=== PATIENT | male | born 1975 | race Caucasian/White ===

== ENCOUNTER 2021-09-19 08:55 | Emergency (ER) | payer OTHER, SELFPAY ==
--- NOTE | 2021-09-19 08:57 | HMH.EDGENADL ---
ED Disposition Clinical Impression: Hemorrhoids Qualifiers: Hemorrhoid type: other Qualified Code(s): K64.8 - Other hemorrhoids Disposition: Home, Self-Care Condition on Discharge: Good Additional Instructions: Follow-up with either Dr. Whitfield or Dr. Pelitez for further evaluation. Return to the emergency department for fever, chest pain, rectal bleeding. Referrals: Provider,Referral, [Primary Care Provider] - Time of Disposition: 09:51 - Critical Care Critical Care Time: No Attestation: On , the high probability of a clinically significant, sudden or life threatening deterioration of the following system(s) required my full and direct attention, intervention and personal management. The time I documented below is in addition to time spent performing reported procedures but includes the following listed in this critical care notation. Medical Decision Making - Medical Records Medical records reviewed: Yes: I reviewed the patient's medical records. - Zain Inquiry Pt receiving controlled substance: No Vital Signs: 09/19/21 09:03 Temperature 98.5 F Temperature Source Oral Pulse Rate [Left Radial] 74 Respiratory Rate 18 Blood Pressure [Right Arm] 170/84 H Blood Pressure Mean [Right Arm] 112 Blood Pressure Source [Right Arm] Automatic Cuff Blood Pressure Position [Right Arm] Sitting 02 Sat by Pulse Oximetry 100 Oxygen Delivery Method Room Air Orders (Tests/Meds): ORDERS Category Date Time Status BMP [Basic Metabolic Panel] Stat Lab 09/19/21 08:58 Stop Req Complete Blood Count Auto Diff Stat Lab 09/19/21 08:58 Stop Req Occult Blood,Stool Stat Lab 09/19/21 09:02 Stop Req Medical Decision Narrative: 45yo M evaluated for bright red blood per rectum. Patient no acute distress on initial evaluation. Visual exam reveals no acute bleeding. Patient does have hemorrhoidal tissue. Recommended he follow-up with surgeon for further evaluation. General Adult HPI - General Stated complaint: rectal bleeding Time Seen by Provider: 09/19/21 08:57 Mode of Arrival: Ambulatory Source of Information: Patient Limitations: No Limitations - History of Present Illness HPI narrative: 45yo M presents the emergency department secondary to bright red blood per rectum. Patient reports he has a history of hemorrhoids and normally has some bleeding with bowel movement. He reports he has had significant bleeding today. States it has not stopped. Denies any blood thinner use. Denies any trauma to the area. Denies any previous rectal surgery. - Related Data Allergies Allergy/AdvReac Type Severity Reaction Status Date / Time PCN (PENICILLIN) Allergy Unknown I-RASH Uncoded 11/05/17 14:33 [facility] History - Hepatitis A Screen Drug use history?: No Attestation statement:: This patient has been screened for Hepatitis A risk factors. I have reviewed the patient's past medical history: Yes - Social History Smoking Status: Current some day smoker ROS Obtained: Yes All systems reviewed & no additional complaints - Gastrointestinal Gastrointestingal: Reports: as per HPI Physical Exam - General General appearance: alert, in no apparent distress - Head Head exam: atraumatic - Respiratory Respiratory exam: Present: normal lung sounds bilaterally. Absent: respiratory distress - Cardiovascular Cardiovascular exam: Present: regular rate, normal rhythm. Absent: JVD - Abdominal Exam Abdominal exam: Present: soft, normal bowel sounds. Absent: distention, tenderness, guarding - Rectal Exam Rectal exam: Present: normal inspection, normal rectal tone, hemorrhoids - Neurological Exam Neurological exam: Present: alert, oriented X3, CN II-XII intact, normal gait - Skin Skin exam: Present: warm, dry, intact, normal color
[2021-09-19 09:03] VITALS: BP 170/84; PULSE 74; RESP 18; TEMP 36.9; O2SAT 100; BMI 34.0
[2021-09-19 09:57] VITALS: BP 152/74; PULSE 78; RESP 16; TEMP 36.6; O2SAT 98
== END 2021-09-19 09:59 | disposition home or self-care (01) ==
PROVIDERS: Emergency Provider Family Medicine
DX: K64.8 Other hemorrhoids (principal); Z88.0 Allergy status to penicillin
CPT/HCPCS: 99281

== ENCOUNTER → 2021-10-01 09:48 | Outpatient (CLI) | payer OTHER, SELFPAY ==
[2021-10-01 10:03] LABS: Basophils # 0.1 K/mm3 (0-0.2); Basophils % 0.5 % (0.1-2.0); Eosinophils # 0.1 K/mm3 (0.0-0.4); Eosinophils % 1.1 % (0.1-12.0); Hematocrit 45.2 % (42.0-52.0); Hemoglobin 15.2 g/dL (14.1-18.0); Lymphocytes # 2.8 K/mm3 (0.7-4.5); Lymphocytes % 29.4 % (10-50); Mean Corpuscular HGB Conc 33.5 g/dL (31.8-35.4); Mean Corpuscular Hemoglobin 30.6 pg (27.0-31.2); Mean Corpuscular Volume 91.3 fl (80-94); Mean Platelet Volume 9.6 fl (7.4-10.4); Monocytes # 0.7 K/mm3 (0.1-1.0); Monocytes % 7.1 % (1.7-9.3); Neutrophils # 5.8 K/mm3 (1.8-7.8); Neutrophils % 61.7 % (37.0-80.0); Platelet Count 230 K/mm3 (142-424); Red Blood Count 4.95 M/mm3 (4.60-6.20); Red Cell Distribution Width 13.6 % (11.5-17.5); White Blood Count 9.4 K/mm3 (4.8-10.8)
[2021-10-01 13:17] LABS: Chloride 107 mmol/L (98-107); Potassium 4.7 mmoL/L (3.5-5.1); Sodium 143 mmol/L (136-145)
[2021-10-01 13:20] LABS: Anion Gap 13.7 mEq/L (5-15); Blood Urea Nitrogen 11 mg/dl (9-20); Calcium 9.2 mg/dl (8.4-10.2); Carbon Dioxide 27 mmol/L (22.0-30.0); Estimated Glomerular Filt Rate 92 ml/min (>60); GFR (African American) 111 ML/MIN (>60); Glucose 84 mg/dl (74-100)
== END ==
PROVIDERS: Visit Provider Surgery
DX: K62.5 Hemorrhage of anus and rectum (principal); Z01.812 Encounter for preprocedural laboratory examination; Z11.52 Encounter for screening for COVID-19
CPT/HCPCS: 36415; 80048; 85025; C9803; U0003; U0005

== ENCOUNTER 2021-10-03 08:45 | Day surgery (SDC) | payer OTHER, SELFPAY ==
[2021-10-03] VITALS (12 sets, daily range): BP systolic 86–144; BP diastolic 46–104; PULSE 62–76; RESP 12–18; TEMP 36.2–36.8; O2SAT 93–98; BMI 32.5
--- NOTE | 2021-10-03 10:26 | P.PN_ITS ---
[facility] Anesthesia Checklist - Patient Identification Patient Identification: Arm Band, Verbal (Name & ) - Structural Data Admitted From: Home Planned Operative Procedure/s: Hemorrhoidectomy Consent for Planned Operative Procedure(s) Verified: Yes Verified Documents: Surgical Consent - Chart Verification Results Verified: CBC, BMP - Additional verifications Anesthesia Reactions: No Hx Blood Transfusions: No Blood Transfusion Reaction: No - Cardiovascular Assessment Heart Sounds: S1 & S2 Pulse Rhythm: Regular - Airway Assessment C-Spine Mobility Assessed: Yes Dentition: Poor Dentition - Neurological Assessment Level of Consciousness: Awake, Alert, Appropriate - Anesthesia Plan Anesthesia Risk discussed: Yes ASA Class: III Anesthesia Type: General [facility] History I have reviewed the patient's past medical history: Yes Medical History: Reports:: Cancer (skin cancer removed) Denies:: Diabetes Mellitus Type 1, Diabetes Mellitus Type 2, Internal Pacemaker, MRSA, Seizures *Have you ever received a pneumonia vaccine?: No *Have you received a flu vaccine this season?: No Other Medical History: Denies: Blood Transfusion Reaction Anesthesia experience/problems:: none Other Surgeries: Yes: Colonoscopy. No: Pacemaker Amputation: No Fractures: No - *Social History Last grade of school completed: 9th or 10th Smoking Status: Current some day smoker Tobacco Type: cigarettes # Packs/Day (cigarettes): 2 (60 pack years) Alcohol Intake: never Substance Use Type: denies use *Occupational Status:: employed Housing: house Household Members: family *Travel in the last 8 weeks: None Family Hx:: No significant family history
--- NOTE | 2021-10-03 11:26 | P.PN_ITS ---
[facility] Anesthesia Record Part I Intake, IV Amount: 450 Estimated blood loss (mL): 0 Urine output (mL): 0 Blood Pressure: 95/46 SaO2: 93 Pulse Rate: 70 Respiratory Rate: 12 Temperature: 97.3 F Patient is:: Drowsy, Oral/Nasal airway Stable to PACU at:: 11:25
--- NOTE | 2021-10-03 11:29 | P.OP_ITS ---
Date of procedure: 10/03/21 Pre-op Diagnosis:: Bleeding hemorrhoids Post-op Diagnosis:: Same Procedure performed:: Exam under anesthesia Surgeon:: Regan Pleitez MD CONSUMER AFFAIRS MANAGER:: Other Anesthesia: LMA Estimated blood loss (mL): 2 Clinical Note:: Patient is a 45-year-old male who was seen in the emergency department a couple of days ago with rectal bleeding. Diagnosed with hemorrhoids. Asked to follow- up with surgery. Patient states that he has had problems with hemorrhoids and rectal bleeding for about 15 years. When he initially had these problems he had seen Dr. Bernadette Pride and underwent colonoscopy in [place]. He had been treated for hemorrhoids and discussion was held for possible hemorrhoid surgery. He states that he has had ongoing bleeding for the past 15 years. However, several days ago it was quite severe and he had to place a hand towel in his underwear and states it became saturated with blood. That was when he was seen in the emergency department. Of note, the patient had been seen 3 months ago in [place] and underwent colonoscopy at which time he had 5 polyps removed and was given treatment for hemorrhoids. Patient was seen in the office. Limited examination revealed some hemorrhoid inflammation. Given the degree of his symptoms plan was made for hemorrhoidectomy with possible banding. Operative findings:: Patient has severe circumferential prolapsing internal hemorrhoids with some external hemorrhoids Operative note:: Patient was taken the operating room. He was positioned in supine position. General anesthesia was induced. He was repositioned in traditional lithotomy position. Area was prepped and draped in the standard surgical fashion. Di gital examination was performed which revealed internal hemorrhoids. [place] anoscope was inserted. Patient had severe inflamed circumferential prolapsing internal hemorrhoids. Thorough exam under anesthesia was performed and consideration was being given for possible extensive hemorrhoidectomy. However, given the circumferential nature of the prolapsing hemorrhoids it was then felt that possible hemorrhoid stapling may be considered. Due to the need for alternate procedure the anesthesia was reversed and procedure terminated. I will counseled the patient on possible PPH hemorrhoid stapling with concomitant possible complex hemorrhoidectomy. Condition: stable Disposition: PACU Complications:: None immediately apparent
--- NOTE | 2021-10-03 11:58 | PC.NURSE ---
1154-pt transported to post op at this time w/zackery rails up, vss, pt stable upon discharge from pacu
--- NOTE | 2021-10-03 12:07 | SUR.PHASEII ---
S.O. CALLED FOR NURSES, PT HAD HEAD LAID BACK WITH EYES CLOSED NOT INITIALLY RESPONSIVE. HR 70 SAT 94%. AROUSED AFTER SAID HIS NAME SEVERAL TIMES. S.O SAID PT DOES THIS AFTER SEX. BP 144/87. Chasity CLINE CRNA NOTIFIED AND OBTAINED ORDER FOR EKG.
--- NOTE | 2021-10-03 12:19 | ECG_ITS ---
APPROVED REPORT Exam: Resting ECG HR:58 bpm ECG Measurements Heart Rate 58 AXES AK 156 P 11 QRSd 88 QRS 11 QT 390 T 1 QTc 382 Conclusion Sinus bradycardia Otherwise normal ECG Electronically signed by : Zeferino Dee MD 10/03/2021 22:08:18
--- NOTE | 2021-10-03 12:20 | SUR.PHASEII ---
FSBS 88
[2021-10-03 12:25] LABS: POC Glucose,Bedside 88 (70-110)
--- NOTE | 2021-10-04 19:47 | HMH.ANESII ---
[facility] Anesthesia Record Part II Discharge Time: 11:55 Destination: Emergency Department PACU nurse assessment reviewed?: Yes Patient Condition:: Undetermined Anesthesia Complications:: None Patient taken to ED for syncopal episode while in recovery. Swallowing reflex intact?: Yes Cyanosis?: No Blood Pressure: 137/93 Pulse Rate: 71 Temperature: 97.5 F Mental Status: Lethargic Pain level:: 0 Nausea and/or vomitting:: None Intake, IV Amount: 0
[2021-10-04 19:49] VITALS: BP 137/93; PULSE 71; TEMP 36.4
== END 2021-10-03 12:36 | disposition other institution (70) ==
LOC: OR 08:47
PROVIDERS: Visit Provider Surgery
PROC: (CPT 46999; principal; 2021-10-03 10:45)
DX: K64.8 Other hemorrhoids (principal); Z88.0 Allergy status to penicillin
CPT/HCPCS: 46999; 82962; 93005; 96374; J2405

== ENCOUNTER 2021-10-03 12:44 | Emergency (ER) | payer OTHER, SELFPAY ==
[2021-10-03 12:45] VITALS: BP 116/86; PULSE 60; RESP 16; O2SAT 97; BMI 32.5
[2021-10-03 12:46] VITALS: BMI 32.5
--- NOTE | 2021-10-03 12:47 | XR_ITS ---
PROCEDURE: XR CHEST PORTABLE CLINICAL HISTORY: syncopal episode COMPARISON: No exams were available for comparison FINDINGS: The cardiomediastinal silhouette and pulmonary vascularity are within normal limits. The lungs are clear without infiltrates, suspicious nodules, or pleural effusions. No acute bony abnormalities. IMPRESSION: No acute findings. The lay in his he Dictated by: Jerry Proctor MD 10/03/2021 13:36 Jerry Proctor MD in [place] 10/03/2021 13:36
--- NOTE | 2021-10-03 12:48 | CT_ITS ---
PROCEDURE: CT HEAD/BRAIN WO CON CLINICAL INDICATION: frequent syncopal episode COMPARISON: No exams were available for comparison TECHNIQUE: Axial images obtained. All CT scans at the facility use one or more dose reduction, viz: automated exposure control, ma/kV adjustment per patient size (including targeted exams where dose is matched to indication, i.e. head), or iterative reconstruction technique. FINDINGS: No midline shift, mass effect, intracranial hemorrhage, hydrocephalus, or extra-axial fluid collection is evident. The calvarium has an unremarkable appearance. No mastoid effusion. No sinus air-fluid level. IMPRESSION: No acute intracranial finding Dictated by: Jerry Proctor MD 10/03/2021 13:38 Jerry Proctor MD in [facility] 10/03/2021 13:38
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
[2021-10-03 13:16] LABS: Basophils # 0.1 K/mm3 (0-0.2); Basophils % 0.7 % (0.1-2.0); Eosinophils # 0.2 K/mm3 (0.0-0.4); Eosinophils % 2.1 % (0.1-12.0); Hematocrit 37.5 % (42.0-52.0); Hemoglobin 12.5 g/dL (14.1-18.0); Lymphocytes # 2.3 K/mm3 (0.7-4.5); Lymphocytes % 32.8 % (10-50); Mean Corpuscular HGB Conc 33.3 g/dL (31.8-35.4); Mean Corpuscular Hemoglobin 31.1 pg (27.0-31.2); Mean Corpuscular Volume 93.6 fl (80-94); Mean Platelet Volume 10.2 fl (7.4-10.4); Monocytes # 0.5 K/mm3 (0.1-1.0); Neutrophils % 57.3 % (37.0-80.0); Platelet Count 178 K/mm3 (142-424); Red Cell Distribution Width 13.5 % (11.5-17.5)
[2021-10-03 13:20] LABS: Anion Gap 12.5 mEq/L (5-15); Blood Urea Nitrogen 10 mg/dl (9-20); Calcium 7.8 mg/dl (8.4-10.2); Carbon Dioxide 22 mmol/L (22.0-30.0); Chloride 110 mmol/L (98-107); Creatinine Clearance Estimated 219 mL/min (50-200); Estimated Glomerular Filt Rate 123 ml/min (>60); GFR (African American) 148 ML/MIN (>60); Glucose 83 mg/dl (74-100); Potassium 4.5 mmoL/L (3.5-5.1); Sodium 140 mmol/L (136-145)
[2021-10-03 13:30] VITALS: BP 133/97; PULSE 65; RESP 16; O2SAT 98
[2021-10-03 13:33] LABS: Troponin I < 0.01 ng/ml (0.00-0.034)
[2021-10-03 14:00] VITALS: BP 148/102; PULSE 69; RESP 18; O2SAT 97
[2021-10-03 14:07] VITALS: BP 139/99; PULSE 68; RESP 15; TEMP 36.7; O2SAT 99
== END 2021-10-03 14:08 | disposition home or self-care (01) ==
PROVIDERS: Emergency Provider Emergency Medicine
DX: R55 Syncope and collapse (principal); K64.9 Unspecified hemorrhoids; F17.210 Nicotine dependence, cigarettes, uncomplicated
CPT/HCPCS: 70450; 71045; 80048; 84484; 85025; 99283

== ENCOUNTER → 2021-10-17 14:58 | Outpatient (CLI) | payer OTHER, SELFPAY | PROVIDERS: Visit Provider Urology | DX: R55 Syncope and collapse (principal) | CPT/HCPCS: 93225 ==

== ENCOUNTER → 2021-10-18 10:17 | Outpatient (CLI) | payer OTHER, SELFPAY ==
--- NOTE | 2021-10-18 10:17 | CA_ITS ---
APPROVED REPORT EXAM: Comprehensive 2D, Doppler, and color-flow Echocardiogram Remelt Pan Tank Operator: Gladis Guardado CRT Ht: 6 ft 2 in Wt: 260lbs BSA: 2.43 BP: 149/98 mmHg Indications: Syncope, PVC S, SMOKIMG 2D Dimensions LVOT 2.09 cm (M/F) 1.5-2.5 LA Volume 40.10 mL LA Volume Index 16.50 mL/m2 (M/F) 16-34 M-Mode Dimensions RVDd 2.93 cm (0.9-2.6) LA Diam 3.37 cm (1.9-4.0) LVDd 6.20 cm (3.5-5.7) Ao Diam 4.65 cm (2.0-3.7) LVDs 3.42 cm (3.5-5.7) IVSd 1.41 cm (0.6-1.1) PWd 0.49 cm (0.6-1.1) EF (Teich) 75.20% FS 44.80% EDV (Teich) 194.00 mL TAPSE 2.50 (<1.7) ESV (Teich) 48.10 mL LV Diastology E Decel Time 290.00 (160-240 msec) E/A Ratio 1.06 MED E' 6.40 (< 7 cm/sec) MED A' 13.90 cm/s E'/MED E' Ratio 11.56 (>14) LAT E' 13.00 (<10 cm/sec) LAT A' 9.80 cm/s E/LAT E' Ratio 5.69 (>14) Aortic Valve AO Peak GR. 9.30 mmHg Mitral Valve MV A Velocity 70.00 (40-130 cm/s) E/A Ratio 1.06 MV Decel. Time 290.00 (160-240 ms) Pulmonary Valve PV Peak Velocity 142.00 (50-150 cm/s) Tricuspid Valve TR P. Velocity 200.00 cm/s RAP Estimate 10.00 mmHg RVSP 26.00 mmHg Left Ventricle Left atrium is normal size, left ventricle is normal size, there is no concentric left ventricular hypertrophy, visually estimated ejection fraction 55% with no regional wall motion abnormality, diastolic parameters are within normal range. Right Ventricle Right atrium and right ventricle are normal size and contractility. Aortic Valve Aortic valve is grossly normal, there is no aortic stenosis or aortic insufficiency. Mitral Valve Mitral valve grossly normal, there is trace mitral regurgitation. Tricuspid Valve Tricuspid valve grossly normal, there is trace tricuspid regurgitation, tricuspid regurgitation jet velocity is inadequate for calculation of the right ventricular systolic pressure. Pulmonic Valve Pulmonic valve is poorly visualized. Great Vessels Aortic root is normal size. Inferior vena cava is normal size and collapse. Pericardium No significant pericardial effusion noted. Conclusion 1. Normal left ventricular size, preserved left ventricular systolic function, visually estimated ejection fraction 55% with no regional wall motion abnormality, diastolic parameters are within normal range. 2. Trace mitral and tricuspid regurgitation. 3. No significant pericardial effusion noted. 4. Inferior vena cava is normal size with normal inspiratory collapse. Electronically signed by : Ortega Kiran MD 10/18/2021 21:09:02
== END ==
PROVIDERS: Visit Provider Urology
DX: R55 Syncope and collapse (principal); I49.3 Ventricular premature depolarization; K64.8 Other hemorrhoids; Z72.0 Tobacco use
CPT/HCPCS: 93306

== ENCOUNTER → 2021-10-30 08:55 | Outpatient (CLI) | payer BC, SELFPAY ==
--- NOTE | 2021-10-30 | CA_ITS ---
APPROVED REPORT Exam: Exercise Treadmill Technologist: Gloria Lu, Ht: 6 ft 2 in Wt: 260 lbs BSA: 2.43 m2 HR: 79 bpm BP: 142/97 mmHg Medical History Allergies: penicillin Cardiac Risk Factors: Smoking, FHX of CAD Stress Test Details Test: Pedro, Exercise stress testing was performed using a Pedro protocol. HR Resting HR: 72 bpm Max Heart Rate (APMHR): 176 bpm Max HR Achieved: 153 bpm Target HR (85% APMHR): 149 bpm % of APMHR: 86 Recovery HR: 96 bpm BP Resting BP: 142/97 mmHg Max BP: 200/101 mmHg Recovery BP: 151.0/92.0 mmHg ECG Clinical Exercise duration: 09:50 min Highest Stage Achieved: Exercise capacity: 12.8 METs Stress ECG Conclusion TEST STOPPED DUE TO CHEST PAIN AND FATIGUE. PT BECAME SOA WITH EXERTION. RIGHT SIDED CP WITH PEAK ECERCISEWITH NO EKG CHANGES TO SUGGEST ISCHEMIA. NORMAL EKG WITH EXERCISE. Test Summary REST . . . . . . . Standing REST . . . . . . . Sitting REST 21:54 0.0 0.0 72 . 142/ 97 . . Stage 1 01:00 10.0 1.7 95 . . . . Stage 1 02:00 10.0 1.7 104 . 160/ 95 . . Stage 1 03:00 10.0 1.7 103 . 160/ 95 . . Stage 2 01:00 12.0 2.5 114 . . . . Stage 2 02:00 12.0 2.5 119 . 165/ 90 . . Stage 2 03:00 12.0 2.5 123 . 165/ 90 . . Stage 3 01:00 14.0 3.4 133 . . . . Stage 3 02:00 14.0 3.4 139 . 185/100 . . Stage 3 03:00 14.0 3.4 143 . 185/100 . . Stage 4 00:50 16.0 4.2 152 . . . Stop exercise at 09:50 RECOVERY 01:00 0.0 0.0 138 . . . . RECOVERY 02:00 0.0 0.0 116 . . . . RECOVERY 03:00 0.0 0.0 101 . 200/101 . . RECOVERY 04:00 0.0 0.0 100 . 179/ 93 . . RECOVERY 05:00 0.0 0.0 100 . 158/ 90 . . RECOVERY 06:00 0.0 0.0 95 . 158/ 90 . . RECOVERY 07:00 0.0 0.0 97 . 158/ 90 . . RECOVERY 07:25 0.0 0.0 99 . 158/ 90 . . Electronically signed by : Ortega Kiran MD 10/30/2021 21:04:19
== END ==
LOC: RT 08:56
PROVIDERS: Visit Provider Nurse Practitioner Family
DX: R06.09 Other forms of dyspnea (principal); R07.9 Chest pain, unspecified; Z82.49 Family history of ischemic heart disease and other diseases of the circulatory system; Z72.0 Tobacco use
CPT/HCPCS: 93017

== ENCOUNTER → 2021-11-01 10:04 | Outpatient (CLI) | payer BC, SELFPAY ==
[2021-11-01 10:41] LABS: Basophils % 0.4 % (0.1-2.0); Eosinophils # 0.1 K/mm3 (0.0-0.4); Eosinophils % 1.1 % (0.1-12.0); Hematocrit 42.4 % (42.0-52.0); Hemoglobin 14.6 g/dL (14.1-18.0); Lymphocytes # 2.8 K/mm3 (0.7-4.5); Lymphocytes % 30.8 % (10-50); Mean Corpuscular HGB Conc 34.4 g/dL (31.8-35.4); Mean Corpuscular Hemoglobin 30.6 pg (27.0-31.2); Mean Corpuscular Volume 88.8 fl (80-94); Mean Platelet Volume 9.9 fl (7.4-10.4); Monocytes # 0.5 K/mm3 (0.1-1.0); Monocytes % 6.1 % (1.7-9.3); Neutrophils # 5.5 K/mm3 (1.8-7.8); Neutrophils % 61.5 % (37.0-80.0); Platelet Count 186 K/mm3 (142-424); Red Blood Count 4.78 M/mm3 (4.60-6.20); Red Cell Distribution Width 13.4 % (11.5-17.5); White Blood Count 8.9 K/mm3 (4.8-10.8)
[2021-11-01 11:19] LABS: Chloride 107 mmol/L (98-107); Potassium 4.3 mmoL/L (3.5-5.1); Sodium 142 mmol/L (136-145)
[2021-11-01 11:22] LABS: Anion Gap 11.3 mEq/L (5-15); Blood Urea Nitrogen 15 mg/dl (9-20); Calcium 9.2 mg/dl (8.4-10.2); Carbon Dioxide 28 mmol/L (22.0-30.0); Estimated Glomerular Filt Rate 81 ml/min (>60); GFR (African American) 98 ML/MIN (>60); Glucose 106 mg/dl (74-100)
== END ==
PROVIDERS: Visit Provider Physician Assistant
DX: Z01.812 Encounter for preprocedural laboratory examination (principal); Z11.52 Encounter for screening for COVID-19; R94.39 Abnormal result of other cardiovascular function study
CPT/HCPCS: 36415; 80048; 85025; C9803; U0003; U0005

== ENCOUNTER 2021-11-02 08:23 | Day surgery (SDC) | payer BC, SELFPAY ==
[2021-11-02] VITALS (10 sets, daily range): BP systolic 108–145; BP diastolic 67–88; PULSE 55–69; RESP 18–20; TEMP 36.7; O2SAT 90–97; BMI 33.3
--- NOTE | 2021-11-02 | IR_ITS ---
APPROVED REPORT Patient Location: Outpatient PROCEDURES Left heart catheterization Left ventriculogram Selective coronary angiogram INDICATION Abnormal stress test, Angina pectoris Informed consent was obtained prior to the procedure. COMPLICATIONS NONE Estimated Blood Loss: LESS THAN 10 ML TECHNIQUE One percent lidocaine used to anesthetize the right anterior aspect of the wrist. The right radial artery was accessed via the Seldinger technique. A 6 [place] sheath was placed in the right radial artery. 2.5 mg of verapamil, 800 mcg of nitroglycerin, 1mg Lidocaine and 5000 U Heparin were given through the arterial sheath. The [place] 1 catheter was also used to perform left heart catheterization, left ventriculogram and selective coronary angiogram. At the end of the procedure the sheath was removed good hemostasis was achieved using Traclet band, patient was transferred to the postop holding area in stable condition. ANGIOGRAPHIC RESULTS The left main artery Normal The left anterior descending artery Normal The circumflex artery Normal The right coronary artery Dominant normal The HOLLAND ventriculogram reveals Normal 65% The left ventricular end-diastolic pressure 15 to 20 mmHg IMPRESSION Normal coronary arteries Normal ejection fraction Mildly elevated LVEDP PLAN 1. Evaluation of noncardiac symptoms Electronically signed by : Thuan Hobson MD 11/02/2021 11:34:05
== END 2021-11-02 14:31 | disposition home or self-care (01) ==
LOC: CATHLAB 08:24
PROVIDERS: Visit Provider Internal Medicine
DX: R94.39 Abnormal result of other cardiovascular function study (principal); I20.8 Other forms of angina pectoris; F17.210 Nicotine dependence, cigarettes, uncomplicated; R06.02 Shortness of breath; R55 Syncope and collapse; Z82.49 Family history of ischemic heart disease and other diseases of the circulatory system; R94.31 Abnormal electrocardiogram [ECG] [EKG]
CPT/HCPCS: 93458; 99152; C1725; C1760; C1769; J1644; Q9967

== ENCOUNTER → 2021-11-13 08:52 | Outpatient (CLI) | payer BC, SELFPAY ==
--- NOTE | 2021-11-13 08:52 | MR_ITS ---
PROCEDURE: MR ANGIO HEAD WO CON CLINICAL INDICATION: Frequent syncope, splitting headache COMPARISON: No exams were available for comparison TECHNIQUE: 3D [id number] images obtained without contrast with multi slab reformats FINDINGS: This exam does not include the peripheral branches of the cerebral arteries above the level of the mid aspect of the 3rd ventricle. Consider repeating exam at no additional charge for full cerebral coverage. The included portion of the brain shows no evidence of aneurysm, AVM, or major vascular occlusive change. The [id number] is unremarkable IMPRESSION: Negative limited MRA of the brain. This exam does not include the peripheral branches of the cerebral arteries above the level of the mid aspect of the 3rd ventricle. The exam can be repeated to assure full coverage of the brain at no additional charge if clinically desired Dictated by: Jerry Proctor MD 11/14/2021 08:45 Jerry Proctor MD in [facility] 11/14/2021 08:45
--- NOTE | 2021-11-13 08:52 | MR_ITS ---
PROCEDURE: MR HEAD/BRAIN WO CON CLINICAL INDICATION: Expected headache, syncope COMPARISON: CT CT HEAD/BRAIN WO CON from 10/03/2021 TECHNIQUE: Routine multiplanar multi echo sequences obtained without contrast FINDINGS: No midline shift, mass effect, intracranial hemorrhage, or hydrocephalus. The cerebellopontine angles, cerebellum, and mid brain have an unremarkable appearance. The pituitary, optic chiasm, corpus callosum, and craniocervical junction are unremarkable. No abnormal white matter signal intensity. Small amount fluid signal is present in the left mastoid sinus. No paranasal sinus air-fluid level. There is mild mucosal thickening of the ethmoid sinuses IMPRESSION: No acute intracranial findings. Mild sinus disease Dictated by: Jerry Proctor MD 11/14/2021 08:39 Jerry Proctor MD in [facility] 11/14/2021 08:39
== END ==
PROVIDERS: PCP Internal Medicine; Visit Provider Specialist
DX: R51.9 Headache, unspecified (principal); R55 Syncope and collapse
CPT/HCPCS: 70544; 70551

== ENCOUNTER → 2021-11-14 09:56 | Outpatient (CLI) | payer BC, SELFPAY ==
--- NOTE | 2021-11-14 09:58 | MR_ITS ---
PROCEDURE: NO CHARGE MR COMPARISON: No exams were available for comparison TECHNIQUE: Routine multiplanar multi echo sequences are performed without gadolinium enhancement. FINDINGS: The patient return for additional imaging for better coverage of the cerebral convexities. However, and fortunately there is a moderate amount of motion artifact. Prominent vessels are present in the interhemispheric fissure region anteriorly which may only be related to motion however, 1 cannot exclude the possibility of a a.m. at this area therefore, patient should return for additional imaging of this region without motion. IMPRESSION: Inconclusive findings regarding the interhemispheric region of the frontal area most likely secondary to motion, cannot exclude AVM. Suggest repeat without motion. Dictated by: Jerry Proctor MD 11/17/2021 14:22 Jerry Proctor MD in [facility] 11/17/2021 14:22
== END ==
PROVIDERS: PCP Family Medicine; Visit Provider Specialist
DX: R51.9 Headache, unspecified (principal); R55 Syncope and collapse

== ENCOUNTER → 2021-12-15 10:42 | Outpatient (CLI) | payer BC, SELFPAY ==
--- NOTE | 2021-12-15 10:43 | CT_ITS ---
FINAL REPORT TECHNIQUE: Thin section axial images were performed through the head in a CTA protocol. MIP reconstruction sagittal and coronal images were submitted. This study was performed with techniques to keep radiation doses as low as reasonably achievable (ALARA). Individualized dose reduction techniques using automated exposure control or adjustment of mA and/or kV according to the patient's size were employed. CLINICAL HISTORY: severe headache, syncope pt had MRa Head and study was limited due to movement artifact. COMPARISON: MRA dated November 13, 2021 FINDINGS: CTA head: The distal vertebral, basilar and distal internal carotid arteries have an unremarkable appearance. No aneurysm is seen. Major intracranial vessels are patent without significant stenosis. IMPRESSION: No evidence of significant stenosis or occlusion. Reviewed, Interpreted and Dictated by Francisco Novak MD Transcribed by Mo Miguel Authenticated by Francisco Novak MD on 12/15/2021 01:20:00 PM [facility][1]
== END ==
LOC: RAD 10:43
PROVIDERS: PCP Family Medicine; Visit Provider Specialist
DX: R55 Syncope and collapse (principal)
CPT/HCPCS: 70496; Q9967

== ENCOUNTER 2022-03-20 01:45 | Emergency (ER) | payer BC, SELFPAY ==
[2022-03-20 01:34] VITALS: BP 120/95; PULSE 57; RESP 12; TEMP 36.5; O2SAT 99; BMI 34.0
--- NOTE | 2022-03-20 02:37 | HMH.EDGENADL ---
ED Disposition Clinical Impression: Situational depression Alcohol intoxication Qualifiers: Complication of substance-induced condition: uncomplicated Qualified Code(s): F10.920 - Alcohol use, unspecified with intoxication, uncomplicated Disposition: Home, Self-Care Condition on Discharge: Good Instructions: DI for Anxiety -- Adult, DI for Alcohol Use Disorder Additional Instructions: You have been evaluated for alcohol intoxication and situational depression. Please try to avoid alcohol, especially when you are feeling stressed or depressed. You have agreed to contract of safety. You will call your nephew or call 911 before doing anything to harm yourself or anyone else. Please follow-up with your primary care doctor in 1 to 2 days for recheck. Return to the emergency department at once for any new or worsening symptoms or any other concerns. Time of Disposition: 05:35 - Critical Care Critical Care Time: No Attestation: On , the high probability of a clinically significant, sudden or life threatening deterioration of the following system(s) required my full and direct attention, intervention and personal management. The time I documented below is in addition to time spent performing reported procedures but includes the following listed in this critical care notation. Medical Decision Making - Medical Records Medical records reviewed: Yes: I reviewed the patient's medical records. - Zain Inquiry Pt receiving controlled substance: No Vital Signs: 03/20/22 01:34 Temperature 97.7 F Temperature Source Oral Pulse Rate [Right Radial] 57 L Respiratory Rate 12 Blood Pressure [Right Arm] 120/95 H Blood Pressure Mean [Right Arm] 103 02 Sat by Pulse Oximetry 99 Oxygen Delivery Method Room Air Medical Decision Narrative: In summary this is a 46-year-old male presenting to the emergency department with alcohol intoxication. Patient clinically stable on arrival. Vital signs within normal limits. He is conversational. Tearful. Plan to observe on air sampling and monitoring, looking for signs of respiratory depression or other distress. After a few hours, patient was awake and alert. Ambulating in the emergency department without signs of intoxication. His nephew was at bedside. Patient admits to alcohol use last night. Says it was stupid and that he regrets the heavy drinking. Is having relationship issues, but denies any thoughts of wanting hurt himself or anyone else. He appears to have good insight and judgment. He agreed to a contract of safety. Says he will call his nephew or call 911 before doing anything to harm himself. He will follow-up with his primary care doctor. Given strict return precautions. Stable for discharge. General Adult HPI - General Chief complaint: Alcohol Stated complaint: INTOXICATED Time Seen by Provider: 03/20/22 01:47 Mode of Arrival: EMS Limitations: Altered Mental Status Description of Symptoms (Recalled from ER Triage Doc. by RN): PT was found intoxicated in a carport. pt is able to answer questions when he is awake. pt states he was depressed after a break up and drank his feelings too fast. - History of Present Illness HPI narrative: 46-year-old female presenting to the emergency department for alcohol intoxication. EMS was called by patient's family. They said he was drunk and difficult to wake up. When EMS arrived, patient was conversational. Admitted to drinking liquor tonight. Says he has not drank alcohol in over 6 years. Believes that tonight he drank too much too fast. Believes he may have drank as much as 1/5 of liquor. Is going through a break-up with his girlfriend. They have a 4-year-old child together. Tonight he was feeling depressed and like he wanted to get drunk. Denies trying to hurt himself. Denies suicide attempts. Has been depressed, but does not want to take medication or talk to a psychologist. No prior history of depression or anxiety. No pr
--- NOTE | 2022-03-20 03:49 | PC.NURSE ---
pt o2 monitor reapplied to pt. family at bedside
--- NOTE | 2022-03-20 05:30 | PC.NURSE ---
Pt requesting to leave, states I am feeling more myself. I appreciate all you have done, but I feel better and would like to go home. I am not feeling like I was when I came in here . made aware of this statement.
[2022-03-20 05:46] VITALS: BP 115/85; PULSE 65; RESP 12; TEMP 36.5; O2SAT 98
== END 2022-03-20 05:50 | disposition home or self-care (01) ==
PROVIDERS: Emergency Provider Emergency Medicine; PCP Family Medicine
DX: F10.129 Alcohol abuse with intoxication, unspecified (principal); F43.21 Adjustment disorder with depressed mood; R94.31 Abnormal electrocardiogram [ECG] [EKG]; R94.39 Abnormal result of other cardiovascular function study; R07.9 Chest pain, unspecified; R47.1 Dysarthria and anarthria; I10 Essential (primary) hypertension; R41.82 Altered mental status, unspecified; F17.210 Nicotine dependence, cigarettes, uncomplicated; Z88.0 Allergy status to penicillin; Z85.9 Personal history of malignant neoplasm, unspecified; Z82.49 Family history of ischemic heart disease and other diseases of the circulatory system; Z80.9 Family history of malignant neoplasm, unspecified; Z83.3 Family history of diabetes mellitus
CPT/HCPCS: 99282

== ENCOUNTER → 2022-03-25 09:06 | Outpatient (CLI) | payer BC, SELFPAY ==
[2022-03-25 09:31] LABS: MANUAL DIFFERENTIAL MANUAL DIFFERENTIAL (MANUAL DIFF)
[2022-03-25 10:00] LABS: Basophils # 0.1 K/mm3 (0-0.2); Basophils % 1.5 % (0.1-2.0); Eosinophils # 0.1 K/mm3 (0.0-0.4); Eosinophils % 1.2 % (0.1-12.0); Hematocrit 46.6 % (42.0-52.0); Hemoglobin 15.7 g/dL (14.1-18.0); Lymphocytes # 2.4 K/mm3 (0.7-4.5); Lymphocytes % 25.8 % (10-50); Mean Corpuscular HGB Conc 33.6 g/dL (31.8-35.4); Mean Corpuscular Hemoglobin 31.6 pg (27.0-31.2); Mean Corpuscular Volume 93.9 fl (80-94); Monocytes # 0.6 K/mm3 (0.1-1.0); Monocytes % 6.4 % (1.7-9.3); Neutrophils # 5.9 K/mm3 (1.8-7.8); Platelet Count 183 K/mm3 (142-424); Red Blood Count 4.96 M/mm3 (4.60-6.20); Red Cell Distribution Width 13.9 % (11.5-17.5); White Blood Count 9.1 K/mm3 (4.8-10.8)
[2022-03-25 10:42] LABS: Chloride 108 mmol/L (98-107); Potassium 4.5 mmoL/L (3.5-5.1); Sodium 141 mmol/L (136-145)
[2022-03-25 10:45] LABS: Anion Gap 10.5 mEq/L (5-15); Blood Urea Nitrogen 14 mg/dl (9-20); Calcium 9.6 mg/dl (8.4-10.2); Carbon Dioxide 27 mmol/L (22.0-30.0); Estimated Glomerular Filt Rate 91 ml/min (>60); GFR (African American) 110 ML/MIN (>60); Glucose 87 mg/dl (74-100)
[2022-03-25 10:55] LABS: Eosinophils % 1 % (0-3); Lymphocytes % 38 % (10-50); Monocytes % 4 % (2-9); Neutrophils % 57 % (42-76); Total Cells Counted 100
[2022-03-25 10:57] LABS: Platelet Estimate Normal
== END ==
LOC: COVID.OUT 09:06
PROVIDERS: PCP Family Medicine; Visit Provider Surgery
DX: Z01.812 Encounter for preprocedural laboratory examination (principal); Z11.52 Encounter for screening for COVID-19; K64.9 Unspecified hemorrhoids
CPT/HCPCS: 36415; 80048; 85007; 85014; 85018; 85048; 85049; C9803; U0003; U0005

== ENCOUNTER 2022-03-26 08:25 | Day surgery (SDC) | payer BC, SELFPAY ==
[2022-03-22 12:27] VITALS: BMI 34.0
--- NOTE | 2022-03-22 13:24 | SUR.PREOP ---
During preop assessment patient stated that he did experience suicidal ideations as recent as 4-5 weeks ago, but denies any current plan. Patient evaluated in Emergency Department on 03/20/22 and discharged with instructions to see Dr Lopez in 1-2 days. Patient states that he has yet to follow up. Spoke with Chasity Waters to determine if clearance with Dr Lopez would be appropriate and sufficient for patient's scheduled procedure, she verbalized agreement with plan. Spoke with Dr Lopez who agreed to see patient tomorrow, 03/26/22 at 1 pm. Patient notified and in agreement to see Dr Lopez at this time. Spoke with Dr Pleitez who verbalized agreement with plan.
[2022-03-26] VITALS (13 sets, daily range): BP systolic 110–134; BP diastolic 67–83; PULSE 60–82; RESP 12–18; TEMP 36.2–36.9; O2SAT 91–98
--- NOTE | 2022-03-26 09:05 | P.PN_ITS ---
[facility] Anesthesia Checklist - Patient Identification Patient Identification: Arm Band, Verbal (Name & ) - Structural Data Admitted From: Home Planned Operative Procedure/s: Hemmorrhoidectomy Consent for Planned Operative Procedure(s) Verified: Yes Verified Documents: Surgical Consent - NPO Status Verified Time NPO: 00:00 - Chart Verification Results Verified: CBC, BMP - Additional verifications Anesthesia Reactions: No Hx Blood Transfusions: No Blood Transfusion Reaction: No - Airway Assessment C-Spine Mobility Assessed: Yes TMJ Mobility Assessed: Yes Dentition: Poor Dentition - Neurological Assessment Level of Consciousness: Awake, Alert, Appropriate - Anesthesia Plan Anesthesia Risk discussed: Yes ASA Class: III Anesthesia Type: General [facility] History I have reviewed the patient's past medical history: Yes Medical History: Reports:: Cancer, Hypertension Denies:: Diabetes Mellitus Type 1, Diabetes Mellitus Type 2, Internal Pacemaker, MRSA, Seizures *Have you ever received a pneumonia vaccine?: No *Have you received a flu vaccine this season?: Yes Other Medical History: Denies: Blood Transfusion Reaction Anesthesia experience/problems:: none Other Surgeries: Yes: Cardiac Catheterization, Colonoscopy, Sinus Surgery, Other. No: Pacemaker Amputation: No Fractures: No - *Social History Last grade of school completed: 9th or 10th Smoking Status: Current every day smoker Tobacco Type: cigarettes # Packs/Day (cigarettes): 1 Alcohol Intake: never Alcohol Intake Frequency:: holidays/special occasions only Substance Use Type: denies use *Occupational Status:: employed Housing: house Household Members: significant other *Travel in the last 8 weeks: Inside the [facility] Family Hx:: Cancer, Diabetes, Heart Attack
--- NOTE | 2022-03-26 11:40 | P.PN_ITS ---
[facility] Anesthesia Record Part I Intake, IV Amount: 1,600 Estimated blood loss (mL): 20 Urine output (mL): 0 Blood Pressure: 118/70 SaO2: 91 Pulse Rate: 82 Respiratory Rate: 16 Temperature: 97.2 F Patient is:: Drowsy, Stable Stable to PACU at:: 11:35
--- NOTE | 2022-03-26 15:22 | HMH.OPNOTE ---
Date of procedure: 03/26/22 Pre-op Diagnosis:: Prolapsing significant internal and external hemorrhoids Post-op Diagnosis:: Same Procedure performed:: Procedure for prolapsing hemorrhoids (PPH) Surgeon:: Regan Pleitez MD Anesthesia: FLORENTINO Estimated blood loss (mL): 20 Clinical Note:: Patient presents for PPH hemorrhoidopexy for ongoing hemorrhoid problems. I had seen him in September. He was sent for surgical consultation after he had presented to the emergency department with quite significant rectal bleeding and diagnosis of hemorrhoids. Patient does state that he has had problems with hemorrhoids and rectal bleeding for about 15 years. He had previously seen Dr. Bernadette Pride and underwent colonoscopy in [place]. Discussion was being held for possible hemorrhoid surgery. When I saw him in the office several months ago he was having some significant hemorrhoid bleeding. He was taken to the operating room for planned hemorrhoidectomy on 10/03/2021. He was found to have severe prolapsing circumferential hemorrhoids with some external hemorrhoids. Given the degree of his hemorrhoid symptoms and physical findings it was felt that he would best be served with hemorrhoidal pexy with possible concomitant hemorrhoidectomy. This was to be scheduled at a later date. Interestingly postoperatively after his minimal exam under anesthesia the patient had a syncopal episode. Patient was evaluated in the emergency department. He does state that he had followed up with neurology and cardiology and even went heart catheterization. He was recently seen in the office with ongoing hemorrhoid problems mainly characterized as some significant bleeding. Patient would like to pursue hemorrhoid surgery due to his symptomatology. We will tentatively plan for PPH hemorrhoidal pexy and possible hemorrhoidectomy. Operative findings:: He had significant circumferential prolapsing hemorrhoids with some external hemorrhoids. Most pronounced inflamed oozing hemorrhoids was in the patient's right lateral region. Operative note:: Consent was obtained and patient was taken to the operating room. He was positioned in supine position. General anesthesia was induced. He was repositioned and prone jackknife position. The area was prepped and draped in the standard surgical fashion. Moistened gauze was inserted into the anal canal and removed. There was circumferential prolapse. [place] anoscope was inserted and inspection was carried out. He had circumferential internal prolapsing hemorrhoids with some minor external hemorrhoids. Plan was made to proceed with PPH hemorrhoidopexy. PPH stapling device was opened. Circular anal dilator was inserted with the obturator. Obturator was then removed. Dilator was secured with placement of 2-0 Prolene perianal sutures temporarily. There was internal prolapsing hemorrhoid tissue circumferentially. Pursestring suture anoscope was inserted. 2-0 PDS pursestring suture was placed several centimeters above the dentate line. It was inspected for integrity and completeness. The 33 mm hemorrhoidal circular stapler device was inserted via the anus with the anvil advanced proximal to the pursestring suture. While applying traction on the pursestring suture the stapler was slowly closed. It was then fired. It was removed and there was noted to be segmental resection of rectal mucosa. Palpation revealed an exposed staple. [place] anoscope was inserted and ultimately this exposed staple was able to be removed. Rectal vault was thoroughly irrigated. Inspection was carried out using the anoscope. There was some inflamed hemorrhoids in the patient's right lateral location. However these no longer prolapse. Consideration was being given initially for possible banding and possible hemorrhoidectomy. However, given the fact that than the longer prolapsed plan was made to defer this with need to be for possible hemorrhoidectomy in th
--- NOTE | 2022-03-27 07:55 | P.PN_ITS ---
[facility] Anesthesia Record Part II Discharge Time: 12:25 Destination: Surgical Day Care (OP Surgery) PACU nurse assessment reviewed?: Yes Patient Condition:: Good Anesthesia Complications:: None Swallowing reflex intact?: Yes Cyanosis?: No Blood Pressure: 115/68 Pulse Rate: 64 Temperature: 97.2 F Mental Status: Alert & Oriented Pain level:: 0 Nausea and/or vomitting:: None Intake, IV Amount: 0
[2022-03-27 07:56] VITALS: BP 115/68; PULSE 64; TEMP 36.2
== END 2022-03-26 13:30 | disposition home or self-care (01) ==
LOC: OR 08:27
PROVIDERS: PCP Family Medicine; Visit Provider Surgery
PROC: (CPT 46947; principal; 2022-03-26 10:00)
DX: K64.2 Third degree hemorrhoids (principal); I10 Essential (primary) hypertension; Z85.9 Personal history of malignant neoplasm, unspecified; Z80.9 Family history of malignant neoplasm, unspecified; Z83.3 Family history of diabetes mellitus; Z82.3 Family history of stroke; Z79.899 Other long term (current) drug therapy; Z88.0 Allergy status to penicillin
CPT/HCPCS: 46947; 96374; J2405; J2710

== ENCOUNTER 2022-06-07 20:07 | Emergency (ER) | payer BC, SELFPAY ==
[2022-06-07 20:07] VITALS: BP 120/82; PULSE 77; RESP 16; TEMP 37.1; O2SAT 97; BMI 30.8
[2022-06-07 21:17] VITALS: BP 120/82; PULSE 77; RESP 16; TEMP 37.1; O2SAT 97
== END 2022-06-07 21:19 | disposition left against medical advice (07) ==
PROVIDERS: Emergency Provider Emergency Medicine; PCP Family Medicine
DX: Z53.21 Procedure and treatment not carried out due to patient leaving prior to being seen by health care provider (principal)

== ENCOUNTER 2023-01-11 09:16 | Day surgery (SDC) | payer OTHER, SELFPAY ==
[2022-11-08 13:55] VITALS: BMI 32.3
--- NOTE | 2022-11-09 08:15 | SUR.PREOP ---
spoke with patient @ 0815 he had a family emergency and wont be coming in for procedure today
--- NOTE | 2022-11-09 08:16 | SUR.PREOP ---
BJ notified LM on office VM
[2023-01-08 13:00] VITALS: BMI 33.6
[2023-01-11] VITALS (10 sets, daily range): BP systolic 104–122; BP diastolic 68–80; PULSE 56–74; RESP 16–20; TEMP 36.1–36.5; O2SAT 93–99
--- NOTE | 2023-01-11 09:56 | HMH.SCOPE ---
Procedure: Date: 01/11/23 Patient Date of :: 1975 Procedure Performed:: Esophagogastroduodenoscopy with biopsies Total colonoscopy with polypectomy using snare and hemorrhoid banding Indications:: Patient presents for EGD and colonoscopy. he underwent PPH hemorrhoid stapling for severe prolapsing circumferential hemorrhoids on 03/26/2022.? He has a longstanding history of some significant hemorrhoid problems for at least 15 years.? He had previously seen Dr. Bernadette Pride years ago and had undergone colonoscopy in [place] and discussion was being held for possible hemorrhoid surgery.? After the patient had presented to the emergency department last year with severe bleeding I had planned on performing hemorrhoidectomy but given his exam under anesthesia and the degree of hemorrhoids it was felt that traditional hemorrhoidectomy would result in suboptimal outcome.? I therefore rescheduled him and performed PPH hemorrhoid stapling on 03/26/2022.? Patient patient had been seen regularly after the surgery and initially he was doing quite well with no evidence of any rectal bleeding.? He then developed some episodes of transient minimal bleeding.? However prior to appointment on 05/22/2022 he states that he had severe bleeding episode once again but then this resolved.? He has had some episodes of occasional quite significant bleeding.? He wonders if stress could cause this bleeding.? He has noted some very dark black stools consistent with old blood .? He has never had upper endoscopy. I had considered repeat exam under anesthesia with possible hemorrhoid banding versus hemorrhoidectomy.? However, when he gives this history of possible melena I feel that endoscopic evaluation would be warranted prior to proceeding with this.? Plan will be for upper endoscopy as well as full colonoscopy as it has been many years since he underwent colonoscopy in [place].? It is possible that he may have hemorrhoids amenable to colonoscopic banding.? However, pending the findings he could require follow-up operative intervention with hemorrhoidectomy. Performing Provider:: Regan Pleitez MD Referring Provider:: Zeferino Lopez MD Sedation:: MAC sedation Procedure:: Patient history was obtained and appropriate physical examination was performed. Patient's medications and allergies were reviewed. Informed consent was obtained after explaining the benefits, alternatives, and risks of the procedure including, but not limited to, bleeding, perforation, missed lesions, and adverse reaction to anesthesia medications. Patient was transported to endoscopy procedure room. Patient was connected to monitoring devices. Throughout the procedure the patient's blood pressure, pulse, and oxygen saturations were monitored continuously. Patient identification and planned procedure were verified by the staff. Attention was first turned to upper endoscopy. Olympus endoscope was inserted via the oropharynx. Esophagus was cannulated. Overall esophagus appeared relatively unremarkable. Gastroesophageal junction was encountered at approximately 45 cm. 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 Stomach was cannulated and insufflated. Retroflexion revealed no evidence of any appreciable hiatal hernia. Gastric antral mucosal biopsy was obtained. Pylorus was traversed. Duodenum appeared unremarkable. Endoscope was withdrawn into the distal esophagus and several biopsies were obtained of possible Murphy's esophagus. Endoscope was withdrawn. Patient was repositioned for colonoscopy. Digital anorectal exam was performed. Variable stiffness Olympus colonoscope was inserted and advanced under direct visualization to the cecum. Adequacy of the colonic preparation was noted. The colonoscope was then slowly withdrawn while carefully examining the color, texture, anatomy, and integrity of the mucosoa circumferentially. Within the rectum retroflexion was performed.
--- NOTE | 2023-01-11 09:58 | EXP.ANES.CKL ---
[facility] Disclaimer: The information contained in this section may have been updated after the patient was seen, as this information can be updated by other users. Medical History Abnormal cardiovascular stress test Abnormal electrocardiography Chest pain Encounter for pre-operative cardiovascular clearance Family history of heart disease Insomnia Lip lesion Mood disorder Sinus pause Typical angina Surgical History History of hemorrhoidectomy Hx of sinus surgery Family History Other Family history of cancer Family history of hypertension Family history of myocardial infarction Family history of stroke Social History Smoking Status: Current every day smoker tobacco type: cigarettes packs per day: 1 second hand exposure: No alcohol intake: never substance use type: denies use current occupational status: employed Travel in the last 8 weeks: Inside the [place] household members: significant other housing: house lives independently: Yes marital status: single number of children: 1 current occupation: light truck driver current occupational exposures/hazards: No caffeine: Yes special jonathon needs: No agree to transfusion: No do you feel safe at home: Yes victim of physical abuse: No victim of emotional abuse: No victim of sexual abuse: No would you like helpful sources: No [facility] Anesthesia Checklist Patient Identification Patient Identification: Arm Band Structural Data Admitted From: Home Planned Operative Procedure/s: EGD/Colonoscopy Consent for Planned Operative Procedure(s) Verified: Yes Verified Documents: Surgical Consent and History and Physical NPO Status Verified Time NPO: 00:00 Additional verifications Anesthesia Reactions: No Hx Blood Transfusions: No Blood Transfusion Reaction: No Airway Assessment C-Spine Mobility Assessed: Yes TMJ Mobility Assessed: Yes Dentition: Good Dentition Neurological Assessment Level of Consciousness: Awake and Alert Anesthesia Plan Anesthesia Risk discussed: Yes Anesthesia Plan: Verified ASA Class: II Anesthesia Type: MAC
--- NOTE | 2023-01-11 11:20 | XR_ITS ---
FINAL REPORT CLINICAL HISTORY: Abdominal pain post colonoscopy FINDINGS: A PA view of the chest was obtained. The mediastinum is unremarkable. The lungs are clear. There is no free air beneath the diaphragm. Upright and supine views of the abdomen reveal a nonspecific, nonobstructive bowel gas pattern. No abnormal calcifications are identified. IMPRESSION: No acute process. Reviewed, Interpreted and Dictated by Regan Walls III, MD Transcribed by Trisha Bearden Authenticated and [facility]
--- NOTE | 2023-01-11 11:36 | SUR.PHASEII ---
pt says no pain in abdomen, rectum is a little sore
--- NOTE | 2023-01-11 12:05 | SUR.PHASEII ---
1205 - Pt back from rad @ this time.
--- NOTE | 2023-01-11 13:35 | SUR.PHASEII ---
abdominal xrays show no abnormalities or free air.
== END 2023-01-11 13:39 | disposition home or self-care (01) ==
PROVIDERS: PCP Family Medicine; Visit Provider Surgery
PROC: 0DJ08ZZ Inspection of Upper Intestinal Tract, Via Natural or Artificial Opening Endoscopic (ICD-10-PCS; CPT 43235; principal; 2023-01-11 10:30)
DX: K62.5 Hemorrhage of anus and rectum (principal); K64.8 Other hemorrhoids; K22.70 Barrett's esophagus without dysplasia; D12.4 Benign neoplasm of descending colon; F17.210 Nicotine dependence, cigarettes, uncomplicated; Z79.899 Other long term (current) drug therapy
CPT/HCPCS: 45380; 45385; 45398; 74021; J2704

== ENCOUNTER → 2023-01-24 10:33 | Outpatient (CLI) | payer OTHER, SELFPAY ==
[2023-01-24 11:42] LABS: Cholesterol 157 mg/dl (140-200); HDL Cholesterol 26 mg/dl (40-60)
[2023-01-24 11:52] LABS: Triglycerides 475 mg/dl (30-150)
[2023-01-24 11:53] LABS: Direct LDL Cholesterol 75.98 mg/dL (100-129)
== END ==
LOC: LAB 10:33
PROVIDERS: PCP Family Medicine; Visit Provider Family Medicine
DX: E78.5 Hyperlipidemia, unspecified (principal)
CPT/HCPCS: 36415; 80061

== ENCOUNTER 2023-05-09 06:15 | Day surgery (SDC) | payer OTHER, SELFPAY ==
[2023-05-07 13:20] VITALS: BMI 32.1
[2023-05-09 06:43] VITALS: BP 159/83; PULSE 72; RESP 18; TEMP 36.3; O2SAT 95
--- NOTE | 2023-05-09 08:09 | HMH.SCOPE ---
Procedure: Date: 05/09/23 Patient Date of :: 1975 Procedure Performed:: Flexible sigmoidoscopy with hemorrhoid banding Indications:: Patient presents for flexible sigmoidoscopy.? He has a relatively longstanding history of bleeding hemorrhoids with symptoms of prolapse.? Patient had actually undergone colonoscopy and was undergoing consideration of PPH stapling many years ago by Dr. Bernadette Pride in [place].? I had ultimately performed PPH hemorrhoid stapling for severe prolapsing circumferential hemorrhoids on 03/26/2022.? Initially the patient did quite well with no evidence of any rectal bleeding.? He then developed some transient episodes of minimal bleeding.? He then developed occasional episodes of more significant bleeding of what he described as old blood .? I therefore performed EGD and colonoscopy on 01/07/2023.? Colonoscopy revealed a descending colon tubular adenoma.? He also had prolapsing internal hemorrhoids which were banded endoscopically.? He was seen back in the office for routine follow-up on 03/28/2023 and had some recurrent bleeding.? I gave him a prescription for Anusol suppositories.? He states initially he had some improvement in the bleeding.? However, last week he states that he did not eat much as he did not have money to eat but then recently has had some significant recurrent bleeding.? He actually has a picture which shows appreciable blood in the toilet. Given his symptomatology and previous findings plan was to proceed with repeat flexible sigmoidoscopy with possible planned hemorrhoid banding Performing Provider:: Regan Pleitez MD Referring Provider:: . Sedation:: MAC sedation Procedure:: Patient history was obtained and appropriate physical examination was performed. Patient's medications and allergies were reviewed. Informed consent was obtained after explaining the benefits, alternatives, and risks of the procedure including, but not limited to, bleeding, perforation, missed lesions, and adverse reaction to anesthesia medications. Patient was transported to endoscopy procedure room. Patient was connected to monitoring devices. Throughout the procedure the patient's blood pressure, pulse, and oxygen saturations were monitored continuously. Patient identification and planned procedure were verified by the staff. Patient was positioned in lateral decubitus position. Digital anorectal exam was performed. Patient required appreciable amount of propofol for initiation of procedure. Olympus endoscope was inserted via the anus. Is advanced to the distal sigmoid which was unremarkable. Retroflexion was performed. Scar from previous PPH hemorrhoid stapling was noted. There were prolapsing hemorrhoids. Prolonged inspection was carried out. There was no evidence of any active bleeding. However there were a couple of hemorrhoid piles which appeared to be more inflamed and prolapsing. Plan was made to proceed with banding. Endoscope was withdrawn. The [employer] shooter endoscopic banding device was attached to the endoscope. Endoscope was reinserted and retroflexion was performed. A couple of more prominent prolapsing hemorrhoid piles were banded. These 2 hemorrhoidal piles were adjacent to 1 another. 2 bands were placed on each. There were no immediate complications. Endoscope was withdrawn. Findings:: Significant prolapsing hemorrhoids Recommendations:: Follow-up clinically. May need repeat banding or more definitive hemorrhoid surgery if symptoms persist. Complications:: None immediate Estimated blood obtained (mL): 2 Colonoscopy Component Colonoscopy Component Was a colonoscopy performed during today's procedure?: No
[2023-05-09 08:10] VITALS: BP 133/94; PULSE 70; RESP 18; TEMP 36.2; O2SAT 93
--- NOTE | 2023-05-09 08:13 | EXP.ANES.CKL ---
[facility] Disclaimer: The information contained in this section may have been updated after the patient was seen, as this information can be updated by other users. Medical History Abnormal cardiovascular stress test Abnormal electrocardiography Chest pain Encounter for pre-operative cardiovascular clearance Family history of heart disease Insomnia Lip lesion Mood disorder Pre-operative cardiovascular examination Pre-operative laboratory examination Sinus pause Typical angina Surgical History History of colonoscopy History of esophagogastroduodenoscopy (EGD) History of hemorrhoidectomy Hx of sinus surgery Family History Other Family history of cancer Family history of hypertension Family history of myocardial infarction Family history of stroke Social History Smoking Status: Current every day smoker tobacco type: cigarettes packs per day: 1 second hand exposure: No alcohol intake: never substance use type: denies use current occupational status: employed Travel in the last 8 weeks: [place] the [place] household members: significant other housing: house lives independently: Yes marital status: single number of children: 1 current occupation: diesel truck technician current occupational exposures/hazards: No caffeine: Yes special jonathon needs: No agree to transfusion: No do you feel safe at home: Yes victim of physical abuse: No victim of emotional abuse: No victim of sexual abuse: No would you like helpful sources: No [facility] Anesthesia Checklist Patient Identification Patient Identification: Verbal (Name & ) Structural Data Admitted From: Home Planned Operative Procedure/s: flex sigmoidoscopy Consent for Planned Operative Procedure(s) Verified: Yes Additional verifications Anesthesia Reactions: No Hx Blood Transfusions: No Blood Transfusion Reaction: No Airway Assessment C-Spine Mobility Assessed: Yes TMJ Mobility Assessed: Yes Dentition: Good Dentition Neurological Assessment Level of Consciousness: Awake, Alert and Appropriate Anesthesia Plan Anesthesia Risk discussed: Yes Anesthesia Plan: Verified ASA Class: II Anesthesia Type: MAC
[2023-05-09 08:20] VITALS: BP 142/67; PULSE 65; RESP 18; O2SAT 98
[2023-05-09 08:30] VITALS: BP 144/72; PULSE 63; RESP 17; O2SAT 98
[2023-05-09 08:40] VITALS: BP 154/94; PULSE 63; RESP 16; TEMP 36.6; O2SAT 98
== END 2023-05-09 08:40 | disposition home or self-care (01) ==
PROVIDERS: PCP Family Medicine; Visit Provider Surgery
PROC: 0DJD8ZZ Inspection of Lower Intestinal Tract, Via Natural or Artificial Opening Endoscopic (ICD-10-PCS; CPT 45330; principal; 2023-05-09 07:30)
DX: K64.8 Other hemorrhoids (principal)
CPT/HCPCS: 45350; J2704

== ENCOUNTER → 2023-05-10 11:31 | Outpatient (CLI) | payer OTHER, SELFPAY ==
--- NOTE | 2023-05-10 11:51 | ECG_ITS ---
APPROVED REPORT Exam: Resting ECG HR:67 bpm ECG Measurements Heart Rate 67 AXES NH 156 P 39 QRSd 85 QRS 58 QT 351 T 23 QTc 367 Conclusion SINUS RHYTHM NORMAL ECG UNCONFIRMED REPORT Electronically signed by : Zeferino Dee MD 05/10/2023 21:26:44
[2023-05-10 13:03] LABS: Basophils % 0.2 % (0.1-2.0); Eosinophils # 0.2 K/mm3 (0.0-0.4); Eosinophils % 1.7 % (0.1-12.0); Hematocrit 39.1 % (42.0-52.0); Hemoglobin 12.6 g/dL (14.1-18.0); Lymphocytes # 2.5 K/mm3 (0.7-4.5); Lymphocytes % 27.6 % (10-50); Mean Corpuscular HGB Conc 32.3 g/dL (31.8-35.4); Mean Corpuscular Hemoglobin 27.2 pg (27.0-31.2); Mean Corpuscular Volume 84.2 fl (80-94); Mean Platelet Volume 10.2 fl (7.4-10.4); Monocytes # 0.7 K/mm3 (0.1-1.0); Monocytes % 7.3 % (1.7-9.3); Neutrophils # 5.7 K/mm3 (1.8-7.8); Neutrophils % 63.1 % (37.0-80.0); Platelet Count 180 K/mm3 (142-424); Red Blood Count 4.64 M/mm3 (4.60-6.20); Red Cell Distribution Width 14.7 % (11.5-17.5)
[2023-05-10 13:24] LABS: Anion Gap 14.7 mEq/L (5-15); Blood Urea Nitrogen 19 mg/dl (9-20); Calcium 8.9 mg/dl (8.4-10.2); Carbon Dioxide 27 mmol/L (22.0-30.0); Chloride 107 mmol/L (98-107); Estimated Glomerular Filt Rate 80 ml/min (>60); GFR (African American) 97 ML/MIN (>60); Glucose 81 mg/dl (74-100); Potassium 4.7 mmoL/L (3.5-5.1); Sodium 144 mmol/L (136-145)
== END ==
LOC: LAB 11:32
PROVIDERS: PCP Family Medicine; Visit Provider Student in an Organized Health Care Education/Training Program
DX: Z01.818 Encounter for other preprocedural examination (principal); C44.02 Squamous cell carcinoma of skin of lip
CPT/HCPCS: 36415; 80048; 85025; 93005

== ENCOUNTER 2023-05-14 09:01 | Day surgery (SDC) | payer OTHER, SELFPAY ==
[2023-05-13 10:38] VITALS: BMI 32.1
[2023-05-14] VITALS (9 sets, daily range): BP systolic 117–142; BP diastolic 68–90; PULSE 64–78; RESP 15–19; TEMP 36.1–36.2; O2SAT 92–100
--- NOTE | 2023-05-14 10:20 | EXP.ANES.CKL ---
[facility] Disclaimer: The information contained in this section may have been updated after the patient was seen, as this information can be updated by other users. Medical History Abnormal cardiovascular stress test Abnormal electrocardiography Chest pain Encounter for pre-operative cardiovascular clearance Family history of heart disease Insomnia Lip lesion Mood disorder Pre-operative cardiovascular examination Pre-operative laboratory examination Sinus pause Typical angina Surgical History History of colonoscopy History of esophagogastroduodenoscopy (EGD) History of hemorrhoidectomy Hx of sinus surgery Family History Other Family history of cancer Family history of hypertension Family history of myocardial infarction Family history of stroke Social History Smoking Status: Current every day smoker tobacco type: cigarettes packs per day: 1 second hand exposure: No alcohol intake: never substance use type: denies use current occupational status: employed Travel in the last 8 weeks: [place] the [place] household members: significant other housing: house lives independently: Yes marital status: single number of children: 1 current occupation: bus or truck garage mechanic current occupational exposures/hazards: No caffeine: Yes special jonathon needs: No agree to transfusion: No do you feel safe at home: Yes victim of physical abuse: No victim of emotional abuse: No victim of sexual abuse: No would you like helpful sources: No [facility] Anesthesia Checklist Patient Identification Patient Identification: Arm Band and Verbal (Name & ) Structural Data Admitted From: Home Planned Operative Procedure/s: excision squamous celll ca on lip---excision cyst on posterior neck Consent for Planned Operative Procedure(s) Verified: Yes Verified Documents: Surgical Consent and History and Physical NPO Status Verified Time NPO: 00:00 Additional verifications Anesthesia Reactions: No Hx Blood Transfusions: No Blood Transfusion Reaction: No Airway Assessment C-Spine Mobility Assessed: Yes TMJ Mobility Assessed: Yes Dentition: Good Dentition Neurological Assessment Level of Consciousness: Awake and Alert Anesthesia Plan Anesthesia Risk discussed: Yes ASA Class: II Anesthesia Type: General
--- NOTE | 2023-05-14 11:56 | EXP.OP.NOTE ---
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 The patient was prepped and draped in usual fashion. Lidocaine with epinephrine 1-100,000 less than 3 cc was injected around the lower lip lesion. We previously had excised this in office but it came back as squamous cell carcinoma transected at the base/concern for positive deep margin. Using a 15 blade I made an elliptical incision around the scar from the previous excision. I dissected down into the subcutaneous tissue and then removed this elliptical excision and placed on the back table for permanent pathology. I then took both a right and left mucosal margin as well as a third deep margin and sent for frozen pathology. These all returned negative for carcinoma. The wound was irrigated out. The deep tissue was closed with Vicryl suture and then the mucosal edges reapproximated with a chromic. Patient was then turned back over to anesthesia awoken and extubated. Condition: stable Disposition: PACU Complications:: none
--- NOTE | 2023-05-14 12:10 | P.PNANES_ITS ---
[facility] Anesthesia Record Part I Anesthesia Record I Intake, IV Amount: 800 Estimated blood loss (mL): 1 Urine output (mL): 0 Blood Pressure: 142/90 SaO2: 92 Pulse Rate: 78 Respiratory Rate: 16 Temperature: 97.1 F Patient is:: Awake, Drowsy and Stable Stable to PACU at:: 12:05
--- NOTE | 2023-05-14 12:10 | EXP.ANES.I ---
[facility] Anesthesia Record Part I Anesthesia Record I Intake, IV Amount: 500 Estimated blood loss (mL): 1 Urine output (mL): 0 Blood Pressure: 120/70 SaO2: 98 Pulse Rate: 70 Respiratory Rate: 16 Temperature: 98 F Patient is:: Awake and Stable Stable to PACU at:: 00:00
[2023-05-15 07:13] VITALS: BP 120/70
[2023-05-15 07:14] VITALS: PULSE 70; RESP 16; TEMP 36.6; O2SAT 98
--- NOTE | 2023-05-20 07:26 | EXP.ANES.II ---
[facility] Anesthesia Record Part II Anesthesia Record Part II Discharge Time: 12:35 Destination: Surgical Day Care (OP Surgery) PACU nurse assessment reviewed?: Yes Patient Condition:: Good Anesthesia Complications:: None Swallowing reflex intact?: Yes Cyanosis?: No Blood Pressure: 122/78 Pulse Rate: 77 Temperature: 97 F Mental Status: Alert & Oriented Pain level:: 0 Nausea and/or vomitting:: None Intake, IV Amount: 0
[2023-05-20 07:27] VITALS: BP 122/78; PULSE 77; TEMP 36.1
== END 2023-05-14 13:12 | disposition home or self-care (01) ==
PROVIDERS: PCP Family Medicine; Visit Provider Student in an Organized Health Care Education/Training Program
PROC: (CPT 11442; principal; 2023-05-14 10:45)
DX: L56.8 Other specified acute skin changes due to ultraviolet radiation (principal); C44.02 Squamous cell carcinoma of skin of lip
CPT/HCPCS: 11442; 12051

== ENCOUNTER → 2023-05-27 08:21 | Outpatient (CLI) | payer OTHER, SELFPAY ==
[2023-05-27 08:54] LABS: Basophils % 0.2 % (0.1-2.0); Eosinophils # 0.1 K/mm3 (0.0-0.4); Eosinophils % 1.5 % (0.1-12.0); Hematocrit 36.2 % (42.0-52.0); Hemoglobin 11.5 g/dL (14.1-18.0); Lymphocytes # 1.9 K/mm3 (0.7-4.5); Lymphocytes % 21.7 % (10-50); Mean Corpuscular HGB Conc 31.8 g/dL (31.8-35.4); Mean Corpuscular Hemoglobin 26.7 pg (27.0-31.2); Mean Platelet Volume 9.4 fl (7.4-10.4); Monocytes # 0.6 K/mm3 (0.1-1.0); Monocytes % 7.5 % (1.7-9.3); Neutrophils % 69.1 % (37.0-80.0); Platelet Count 201 K/mm3 (142-424); Red Blood Count 4.31 M/mm3 (4.60-6.20); Red Cell Distribution Width 14.9 % (11.5-17.5); White Blood Count 8.6 K/mm3 (4.8-10.8)
== END ==
LOC: LAB 08:21
PROVIDERS: PCP Family Medicine; Visit Provider Surgery
DX: K64.8 Other hemorrhoids (principal)
CPT/HCPCS: 36415; 85025

== ENCOUNTER 2024-01-28 12:41 | Outpatient (CLI) | payer BC, SELFPAY ==
[2024-01-28 12:39] LABS: Coronavirus 19, PCR Not Detected (NotDetected); Influenza A, PCR Not Detected (NotDetected); Influenza B, PCR Not Detected (NotDetected)
== END 2024-01-28 23:59 ==
LOC: LAB.DROPOF 12:42
PROVIDERS: PCP Nurse Practitioner Family; Visit Provider Nurse Practitioner Family
DX: R05.9 Cough, unspecified (principal); R50.9 Fever, unspecified; R09.89 Other specified symptoms and signs involving the circulatory and respiratory systems; R06.02 Shortness of breath
CPT/HCPCS: 87636

== ENCOUNTER 2024-02-10 07:44 | Outpatient (CLI) | payer BC, SELFPAY ==
[2024-02-10 08:45] VITALS: PULSE 86; PULSE 90
[2024-02-10] MEDS: ALBUTEROL 0.083% 2.5 MG/3 ML NEB IH (08:45)
== END 2024-02-10 23:59 ==
LOC: RT 07:45
PROVIDERS: PCP Nurse Practitioner Family; Visit Provider Nurse Practitioner Family
DX: R06.02 Shortness of breath (principal); Z72.0 Tobacco use
CPT/HCPCS: 94060; 94618; 94640; 94726; 94729

== ENCOUNTER 2024-03-27 11:48 | Outpatient (CLI) | payer BC, SELFPAY ==
[2024-03-27 12:45] LABS: Basophils # 0.1 K/mm3 (0-0.2); Basophils % 0.6 % (0.1-2.0); Eosinophils # 0.1 K/mm3 (0.0-0.4); Eosinophils % 1.4 % (0.1-12.0); Hematocrit 48.3 % (42.0-52.0); Hemoglobin 15.5 g/dL (14.1-18.0); Lymphocytes # 2.5 K/mm3 (0.7-4.5); Mean Corpuscular Hemoglobin 29.7 pg (27.0-31.2); Mean Corpuscular Volume 92.7 fl (80-94); Mean Platelet Volume 9.7 fl (7.4-10.4); Monocytes # 0.5 K/mm3 (0.1-1.0); Monocytes % 6.1 % (1.7-9.3); Neutrophils # 4.8 K/mm3 (1.8-7.8); Neutrophils % 60.9 % (37.0-80.0); Platelet Count 190 K/mm3 (142-424); Red Blood Count 5.21 M/mm3 (4.60-6.20); Red Cell Distribution Width 14.7 % (11.5-17.5); White Blood Count 7.9 K/mm3 (4.8-10.8)
[2024-03-27 13:32] LABS: Uric Acid 6.9 mg/dl (3.5-8.5)
[2024-03-27 13:44] LABS: C-Reactive Protein 3.6 mg/L (0-4)
[2024-03-27 13:53] LABS: Erythrocyte Sedimentation Rate 5 mm/hr (0-15)
[2024-03-28 11:33] LABS: RA Latex Turbid. <10.0 IU/mL (<14.0)
[2024-04-04 11:09] LABS: Antinuclear Antibodies (ANA) Negative; Antinuclear Antibodies, IFA Positive
== END 2024-03-27 23:59 | disposition home or self-care (01) ==
LOC: LAB 11:49
PROVIDERS: PCP Nurse Practitioner Family; Visit Provider Internal Medicine Pulmonary Disease
DX: J84.9 Interstitial pulmonary disease, unspecified (principal); J45.909 Unspecified asthma, uncomplicated; R06.09 Other forms of dyspnea; F17.210 Nicotine dependence, cigarettes, uncomplicated
CPT/HCPCS: 36415; 84550; 85025; 85651; 86038; 86140; 86225; 86235; 86431

== ENCOUNTER 2024-04-14 09:10 | Outpatient (CLI) | payer BC, SELFPAY ==
--- NOTE | 2024-04-14 09:11 | CT_ITS ---
FINAL REPORT TECHNIQUE: Axial images through the chest were performed by computed tomography. This study was performed with techniques to keep radiation doses as low as reasonably achievable, (ALARA). Individualized dose reduction techniques using automated exposure control or adjustment of mA and/or kV according to the patient's size were employed. CLINICAL HISTORY: smoker; SOA COMPARISON: None FINDINGS: CHEST CT WITHOUT CONTRAST: Chest CT examination was performed without intravenous contrast using expiratory technique, prone inspiration technique, and high-resolution imaging. There are a few small scattered mediastinal and hilar lymph nodes, nonspecific, as well as calcified nodes present in the mediastinum and paulette. Expiratory images failed to reveal any evidence of air trapping. No bronchiectasis is identified on high-resolution imaging. There is mild bronchial wall thickening noted, that may be the sequela of mild chronic bronchitis. Prone films failed to reveal any evidence of basilar fibrosis. No focal nodule or infiltrate is seen. No evidence of pleural or pericardial effusion is noted. IMPRESSION: Mild bronchial wall thickening is noted, that may be the sequela of mild chronic bronchitis. No focal nodule or infiltrate is identified, and there is no evidence of air trapping or bronchiectasis. No basilar fibrosis is noted. Reviewed, Interpreted and Dictated by Francisco Novak MD Transcribed by Abi Escalera [facility] and [facility]
== END 2024-04-14 23:59 | disposition home or self-care (01) ==
LOC: RAD 09:11
PROVIDERS: PCP Nurse Practitioner Family; Visit Provider Internal Medicine Pulmonary Disease
DX: R06.02 Shortness of breath (principal); J84.9 Interstitial pulmonary disease, unspecified
CPT/HCPCS: 71250

== ENCOUNTER 2024-08-20 15:07 | Outpatient (CLI) | payer BC, SELFPAY ==
[2024-08-20 15:41] LABS: Basophils % 0.4 % (0.1-2.0); Eosinophils # 0.1 K/mm3 (0.0-0.4); Eosinophils % 1.3 % (0.1-12.0); Hematocrit 45.4 % (42.0-52.0); Hemoglobin 14.3 g/dL (14.1-18.0); Lymphocytes # 2.4 K/mm3 (0.7-4.5); Lymphocytes % 31.9 % (10-50); Mean Corpuscular HGB Conc 31.6 g/dL (31.8-35.4); Mean Corpuscular Hemoglobin 28.6 pg (27.0-31.2); Mean Corpuscular Volume 90.7 fl (80-94); Mean Platelet Volume 9.3 fl (7.4-10.4); Monocytes # 0.6 K/mm3 (0.1-1.0); Monocytes % 8.2 % (1.7-9.3); Neutrophils # 4.4 K/mm3 (1.8-7.8); Neutrophils % 58.1 % (37.0-80.0); Platelet Count 196 K/mm3 (142-424); Red Blood Count 5.01 M/mm3 (4.60-6.20); Red Cell Distribution Width 14.2 % (11.5-17.5); White Blood Count 7.6 K/mm3 (4.8-10.8)
[2024-08-20 16:05] LABS: Alanine Aminotransferase 31 U/L (12-78); Albumin Level 4.4 g/dl (3.5-5.0); Albumin/Globulin Ratio 1.9 (1.1-1.8); Alkaline Phosphatase 111 U/L (38-126); Anion Gap 7.8 mEq/L (5-15); Aspartate Amino Transferase 26 U/L (17-59); Bilirubin,Total 0.6 mg/dl (0.2-1.3); Blood Urea Nitrogen 13 mg/dl (9-20); Calcium 9.3 mg/dl (8.4-10.2); Carbon Dioxide 27 mmol/L (22.0-30.0); Chloride 109 mmol/L (98-107); Chol/HDL Ratio 5.3 (1-3.5); Cholesterol 169 mg/dl (140-200); Estimated Glomerular Filt Rate 80 ml/min (>60); GFR (African American) 97 ML/MIN (>60); Globulin 2.3 g/dL (1.3-3.2); Glucose 80 mg/dl (74-100); HDL Cholesterol 32 mg/dl (40-60); Potassium 3.8 mmoL/L (3.5-5.1); Sodium 140 mmol/L (136-145); Total Protein,Serum 6.7 g/dl (6.3-8.2); Triglycerides 340 mg/dl (30-150); VLDL Cholesterol 68 mg/dL (0-40)
[2024-08-20 16:16] LABS: Direct LDL Cholesterol 86.94 mg/dL (100-129)
[2024-08-20 16:21] LABS: 25-OH Vitamin D, Total 19.9 ng/mL (30-100)
[2024-08-20 16:33] LABS: Erythrocyte Sedimentation Rate 4 mm/hr (0-15)
[2024-08-20 16:36] LABS: Thyroid Stimulating Hormone 1.18 uIU/mL (0.465-4.68)
[2024-08-20 19:50] LABS: Creatine Kinase 117 U/L (55-170)
[2024-08-20 20:41] LABS: Uric Acid 7.5 mg/dl (3.5-8.5)
[2024-08-22 10:12] LABS: RA Latex Turbid. <10.0 IU/mL (<14.0)
[2024-08-24 14:17] LABS: Anti-Centromere B Antibodies <0.2 AI (0.0-0.9); Anti-DNA (DS) Ab Qn <1 IU/mL (0-9); Anti-Jo-1 <0.2 AI (0.0-0.9); Antiribosomal P Antibodies <0.2 AI (0.0-0.9); Antiscleroderma-70 Antibodies <0.2 AI (0.0-0.9); Sjogren's Anti-SS-A <0.2 AI (0.0-0.9); Sjogren's Anti-SS-B <0.2 AI (0.0-0.9); Smith/RNP Antibodies <0.2 AI (0.0-0.9)
[2024-08-24 15:10] LABS: Aldolase 5.7 U/L (3.3-10.3); Antinuclear Antibodies, IFA Negative (.)
[2024-08-24 18:20] LABS: Cytoplasmic (C-ANCA) <1:20 titer (Neg:<1:20); Perinuclear (P-ANCA) <1:20 titer (Neg:<1:20)
[2024-08-26 12:20] LABS: Aspergillus fumigatus IgG Negative (Negative); Pigeon Serum Abs Negative (Negative)
== END 2024-08-20 23:59 | disposition home or self-care (01) ==
LOC: LAB 15:08
PROVIDERS: Internal Medicine Pulmonary Disease; PCP Nurse Practitioner Family; Visit Provider Nurse Practitioner Family
DX: I10 Essential (primary) hypertension (principal); J84.9 Interstitial pulmonary disease, unspecified; J98.4 Other disorders of lung; J84.10 Pulmonary fibrosis, unspecified
CPT/HCPCS: 36415; 80050; 80053; 80061; 82085; 82306; 82550; 83516; 84443; 84550; 85025; 85651; 86036; 86038; 86225; 86235; 86331; 86431; 86602; 86606; 86609

== ENCOUNTER 2024-08-26 14:51 | Outpatient (CLI) | payer BC, SELFPAY ==
[2024-08-26 15:45] VITALS: PULSE 107; PULSE 99
[2024-08-26] MEDS: ALBUTEROL 0.083% 2.5 MG/3 ML NEB IH (15:45)
== END 2024-08-26 23:59 | disposition home or self-care (01) ==
LOC: RT 14:53
PROVIDERS: PCP Nurse Practitioner Family; Visit Provider Internal Medicine Pulmonary Disease
DX: R06.09 Other forms of dyspnea (principal)
CPT/HCPCS: 94060; 94640; 94726; 94729; J7613

== ENCOUNTER 2025-06-25 07:52 | Day surgery (SDC) | payer BC, SELFPAY ==
[2025-06-24 13:14] VITALS: BMI 35.9
--- NOTE | 2025-06-25 06:24 | P.HP_ITS ---
HPI HPI HPI: Patient is a 49-year-old male who presents for colonoscopy. I had seen him in the past for rectal bleeding. He has a relatively longstanding history of bleeding hemorrhoids with symptoms of prolapse. He had undergone colonoscopy with consideration of PPH stapling many years ago by Dr. Bernadette Pride in [place]. On 03/26/2022 I had performed PPH hemorrhoid stapling for prolapsing hemorrhoids. He initially did quite well and had developed some symptoms of rectal bleeding. Colonoscopy as well as EGD was performed on 01/07/2023. He was found to have a tubular adenoma in the descending colon and had some prolapsing internal hemorrhoids which were banded endoscopically. He once again had some recurrent bleeding which was treated medically initially. He underwent a follow-up flexible sigmoidoscopy on 05/09/2023 at which he underwent additional banding once again of 2 hemorrhoidal piles. When he presented to the office following that he had resolution of his symptoms. Subsequently he did not follow-up in the office. He presents for a follow-up colonoscopy due to history of polyps. He states that after the prep his bowels only move 4 times. He describes the last bowel movement as pure blood . . [facility] Disclaimer: The information contained in this section may have been updated after the patient was seen, as this information can be updated by other users. Medical History Dyspnea on exertion Restrictive lung disease Smoking greater than 30 pack years Pre-operative cardiovascular examination Pre-operative laboratory examination Lip lesion Insomnia Mood disorder Sinus pause Encounter for pre-operative cardiovascular clearance Abnormal cardiovascular stress test Typical angina Abnormal electrocardiography Family history of heart disease Chest pain Surgical History History of esophagogastroduodenoscopy (EGD) History of colonoscopy Hx of sinus surgery History of hemorrhoidectomy Family History Other Family history of cancer Family history of hypertension Family history of myocardial infarction Family history of stroke Social History Smoking Status: Current every day smoker tobacco type: cigarettes packs per day: 1 second hand exposure: No alcohol intake: never substance use type: denies use current occupational status: employed Travel in the last 8 weeks?: [place] household members: significant other and family housing: house lives independently: Yes marital status: single number of children: 1 current occupation: cement truck driver current occupational exposures/hazards: No caffeine: Yes special jonathon needs: No agree to transfusion: No do you feel safe at home: Yes victim of physical abuse: No victim of emotional abuse: No victim of sexual abuse: No would you like helpful sources: No Have you lived/traveled outside US in past 30 days?: No Contact w/someone who lives/traveled outside US past 30 days?: No Exposure to someone with infectious disease in past 14 days?: No Do you have a fever (greater than 100.4 F or 38 C)?: No Have you tested positive for COVID-19?: No Exposed to someone with COVID-19 in past 14 days?: No Do you have a sore throat?: No Do you have a cough?: No Do you have any weakness?: No Are you experiencing any nausea/vomitting?: Yes Do you have any diarrhea?: No Are you experiencing any unusual bleeding?: No Do you have any muscle aches/pain?: No Do you have any abdominal pain?: No Are you experiencing loss of taste or smell?: No Other Medical History Have you received the Flu Vaccine for this season: No Have you received the Pneumonia Vaccine: No Meds Home Medications and Allergies Home Medications ?Medication ?Instructions ?Recorded ?Confirmed ?Type sodium,potassium,mag sulfates 17.5 See Rx Instructions PO .COMPLEX 05/13/25 06/25/25 Rx gram-3.13 gram-1.6 gram oral soln #354 mL (Suprep Bowel Prep Kit) lisinopril 20 mg tablet 20 mg PO DAILY 06/24/25 0807/12 History New Prescriptions to Start Prescriptions: Allergies Allergy/AdvReac Type Severity Reaction Status Date / Time Penicillins Allergy Rash Verified 06/25/25 08:20 Exam Data for Last 24 hours I & O for Last 24 hours: Intake & Output 06/22/25 06/23/25 06/24/25 06/25/25 11:59 11:59 11:59 11:59 Weight 280 lb Constitutional Constitutional: no acute distress *Routine HEENT Exam Head: Present normocephalic Eye: Present EOMI and PERRL ENT: Present mucous membranes moist *Routine Neck Exam Neck: Present supple; Absent lymphadenopathy *Routine Respiratory Exam Respiratory: Present CTA bilaterally *Routine Cardiovascular Exam Cardiovascular: Present RRR *Routine Abdominal Exam Abdominal: Present soft and normoactive bowel sounds; Absent tenderness *Routine Rectal Exam Rectal:: deferred *Routine Genitalia Exam Genitalia:: deferred *Routine Extremities Exam Extremities: Absent cyanosis, clubbing or edema *Routine Skin Exam Skin: Present warm; Absent rash *Routine Neurological Exam Neurological: Present alert and oriented X3 Assessment and Plan *Assessment and plan (1) Tubular adenoma of colon: Status: Acute Category: Medical Code(s): D12.6 - Benign neoplasm of colon, unspecified Plan Colonoscopy, possible hemorrhoid banding if indicated.
[2025-06-25 08:04] VITALS: BP 139/86; PULSE 88; RESP 18; TEMP 36.3; O2SAT 96; BMI 35.9
[2025-06-25] MEDS: LACTATED RINGERS 1000ML 1,000 ML 25 ML IV (08:19)
--- NOTE | 2025-06-25 08:42 | EXP.ANES.CKL ---
[facility] Disclaimer: The information contained in this section may have been updated after the patient was seen, as this information can be updated by other users. Medical History Dyspnea on exertion Restrictive lung disease Smoking greater than 30 pack years Pre-operative cardiovascular examination Pre-operative laboratory examination Lip lesion Insomnia Mood disorder Sinus pause Encounter for pre-operative cardiovascular clearance Abnormal cardiovascular stress test Typical angina Abnormal electrocardiography Family history of heart disease Chest pain Surgical History History of esophagogastroduodenoscopy (EGD) History of colonoscopy Hx of sinus surgery History of hemorrhoidectomy Family History Other Family history of cancer Family history of hypertension Family history of myocardial infarction Family history of stroke Social History Smoking Status: Current every day smoker tobacco type: cigarettes packs per day: 1 second hand exposure: No alcohol intake: never substance use type: denies use current occupational status: employed Travel in the last 8 weeks?: Inside the [place] household members: significant other and family housing: house lives independently: Yes marital status: single number of children: 1 current occupation: fire truck driver current occupational exposures/hazards: No caffeine: Yes special jonathon needs: No agree to transfusion: No do you feel safe at home: Yes victim of physical abuse: No victim of emotional abuse: No victim of sexual abuse: No would you like helpful sources: No Have you lived/traveled outside US in past 30 days?: No Contact w/someone who lives/traveled outside US past 30 days?: No Exposure to someone with infectious disease in past 14 days?: No Do you have a fever (greater than 100.4 F or 38 C)?: No Have you tested positive for COVID-19?: No Exposed to someone with COVID-19 in past 14 days?: No Do you have a sore throat?: No Do you have a cough?: No Do you have any weakness?: No Are you experiencing any nausea/vomitting?: Yes Do you have any diarrhea?: No Are you experiencing any unusual bleeding?: No Do you have any muscle aches/pain?: No Do you have any abdominal pain?: No Are you experiencing loss of taste or smell?: No [facility] Anesthesia Checklist Patient Identification Patient Identification: Arm Band and Verbal (Name & ) Structural Data Admitted From: Home Planned Operative Procedure/s: colonscopy Verified Documents: Surgical Consent and History and Physical NPO Status Verified Time NPO: 00:00 Additional verifications Anesthesia Reactions: No Hx Blood Transfusions: No Blood Transfusion Reaction: No Airway Assessment Mallampati Score:: Class II Neurological Assessment Level of Consciousness: Awake, Alert and Appropriate Hx Seizures: No Numbness or tingling in extremities: No Anesthesia Plan Anesthesia Risk discussed: Yes Anesthesia Plan: Verified ASA Class: II Anesthesia Type: MAC
--- NOTE | 2025-06-25 09:20 | HMH.SCOPE ---
Procedure: Date: 06/25/25 Patient Date of :: 1975 Procedure Performed:: Total colonoscopy to cecum with polypectomy Indications:: Patient is a 49-year-old male who presents for colonoscopy. I had seen him in the past for rectal bleeding. He has a relatively longstanding history of bleeding hemorrhoids with symptoms of prolapse. He had undergone colonoscopy with consideration of PPH stapling many years ago by Dr. Bernadette Pride in [place]. On 03/26/2022 I had performed PPH hemorrhoid stapling for prolapsing hemorrhoids. He initially did quite well and had developed some symptoms of rectal bleeding. Colonoscopy as well as EGD was performed on 01/07/2023. He was found to have a tubular adenoma in the descending colon and had some prolapsing internal hemorrhoids which were banded endoscopically. He once again had some recurrent bleeding which was treated medically initially. He underwent a follow-up flexible sigmoidoscopy on 05/09/2023 at which he underwent additional banding once again of 2 hemorrhoidal piles. When he presented to the office following that he had resolution of his symptoms. Subsequently he did not follow-up in the office. Performing Provider:: Regan Pleitez MD Referring Provider:: Cheng Howadr Sedation:: MAC sedation Procedure:: Patient history was obtained and appropriate physical examination was performed. Patient's medications and allergies were reviewed. Informed consent was obtained after explaining the benefits, alternatives, and risks of the procedure including, but not limited to, bleeding, perforation, missed lesions, and adverse reaction to anesthesia medications. Patient was transported to endoscopy procedure room. Patient was connected to monitoring devices. Throughout the procedure the patient's blood pressure, pulse, and oxygen saturations were monitored continuously. Patient identification and planned procedure were verified by the staff. Patient was positioned in lateral decubitus position. Digital anorectal exam was performed. Variable stiffness Olympus colonoscope was inserted and advanced under direct visualization to the cecum. Adequacy of the colonic preparation was noted. The colonoscope was then slowly withdrawn while carefully examining the color, texture, anatomy, and integrity of the mucosoa circumferentially. Within the rectum retroflexion was performed. Colonoscope was then withdrawn. Impression: External examination revealed no evidence of any definite external hemorrhoids. As the colonoscope was inserted colonic preparation was poor as there was particulate liquid stool throughout the colon and pasty stool coating the byers. Advancement of the colonoscope to the cecum was difficult due to significant redundancy, atony, and floppiness of the colon. Ultimately it was advanced to the cecum. High-volume trans colonoscopic irrigation and suctioning was performed which resulted and suboptimal fair preparation at best. In the descending colon there was a small adenomatous polyp removed with cold snare. In the proximal sigmoid colon there was a tiny diminutive polyp removed with cold snare. In the distal sigmoid colon there is a tiny diminutive polyp removed with biopsy forceps. Visualization however overall was suboptimal. Retroflexion within the rectum revealed some liquid stool. There was no evidence of any bleeding hemorrhoids. No blood within the colon. . Findings:: Poor colonic preparation Redundancy, atony of the colon Polyps as noted above Nonbleeding internal hemorrhoids, suboptimal visualization Recommendations:: Patient likely needs management of possible chronic constipation. Given the suboptimal prep recommend repeat colonoscopy 1 year with maximum prep. Complications:: None immediately apparent Estimated blood obtained (mL): 1 Colonoscopy Component Colonoscopy Component Was a colonoscopy performed during today's procedure?: Yes Recommended follow up colonoscopy of at least 10 years?: No If no, follow up colonoscopy recommended in ___ years?: 1 Reason for not recommending >/= 10 yr follow-up interval?: See above
[2025-06-25 09:22] VITALS: BP 129/78; PULSE 85; RESP 17; TEMP 36.4; O2SAT 93
[2025-06-25 09:32] VITALS: BP 128/76; PULSE 78; RESP 16; O2SAT 95
[2025-06-25 09:42] VITALS: BP 132/82; PULSE 84; RESP 17; O2SAT 93
[2025-06-25 09:52] VITALS: BP 161/92; PULSE 82; RESP 16; O2SAT 94
== END 2025-06-25 10:00 | disposition home or self-care (01) ==
PROVIDERS: PCP Nurse Practitioner Family; Visit Provider Surgery
PROC: 0DJD8ZZ Inspection of Lower Intestinal Tract, Via Natural or Artificial Opening Endoscopic (ICD-10-PCS; CPT 45380; principal; 2025-06-25 08:30)
DX: D12.4 Benign neoplasm of descending colon (principal); D12.5 Benign neoplasm of sigmoid colon; K63.5 Polyp of colon; K64.8 Other hemorrhoids; K59.89 Other specified functional intestinal disorders; Z87.19 Personal history of other diseases of the digestive system; F17.210 Nicotine dependence, cigarettes, uncomplicated; Z79.899 Other long term (current) drug therapy; Z88.0 Allergy status to penicillin
CPT/HCPCS: 45380; 45385; J1596; J2003; J2704; J7120

== ENCOUNTER 2025-08-04 11:29 | Outpatient (CLI) | payer BC, SELFPAY | END 2025-08-04 23:59 | disposition home or self-care (01) | LOC: RT 11:30 | PROVIDERS: PCP Family Medicine; Visit Provider Family Medicine | DX: I49.1 Atrial premature depolarization (principal); I49.3 Ventricular premature depolarization; I47.20 Ventricular tachycardia, unspecified; I47.19 Other supraventricular tachycardia; I49.8 Other specified cardiac arrhythmias | CPT/HCPCS: 93270 ==

== ENCOUNTER 2025-09-07 07:13 | Outpatient (CLI) | payer OTHER, SELFPAY ==
--- NOTE | 2025-09-07 | CA_ITS ---
APPROVED REPORT Exam: Pharmacologic Technologist: Ernestina Jennings Stress Nurse: Em MULLER, RN Ht: 6 ft 2 in Wt: 279 lbs BSA: 2.50 m2 HR: 69 bpm BP: 142/77 mmHg Indications: Angina pectoris, Abnormal EKG Stress Test Details Test: Lexiscan HR Resting HR: 69 bpm Max Heart Rate (APMHR): 172.307002 bpm Max HR Achieved: 97 bpm Target HR (85% APMHR): 146.106445 bpm % of APMHR: 56.40 Recovery HR: 77 bpm BP Resting BP: 142.0/77.0 mmHg Max BP: 142.0/73.0 mmHg Recovery BP: 133.0/84.0 mmHg ECG Resting ECG: Sinus rhythm Stress ECG Conclusion Lungs clear to auscultation prior to test start. Symptoms: Mild dyspnea Arrhythmias/Ectopy: None ST-T Changes: Less than 0.[address] segment changes. Conclusion: Nondiagnostic ECG/Lexiscan Electronically signed by : Lindsay Ho MD 09/08/2025 12:23:04
--- NOTE | 2025-09-07 07:00 | NM_ITS ---
APPROVED REPORT Exam: Nuclear Stress Test Indication: Abnormal EKG, HTN, Tobacco use, Family history Patient Location: Outpatient Stress Tech: Ernestina Jennings [place] Tech:Millie Mancia, ARRT, RT (R)(N) Ht: 6 ft 3 in Wt: 280 lbs HR: 90 bpm BP: 142/77 mmHg BSA: 2.53 m2 TID: 1.02 BMI: 34.9 History: Abnormal EKG, HTN, Tobacco use, Family history Procedure: Patient received 0.4 mg of intravenous Lexiscan, resting heart rate 90 bpm, resting blood pressure 142/77 mmHg, with Lexiscan maximum heart rate achieved was 97 bpm which is % of the maximum predicted heart rate and blood pressure was 142/73 mmHg. With Lexiscan, patient denied any complaint of chest pain. Cardiac Stress and Resting SPECT Images: Cardiac Stress and Resting SPECT images were obtained using technetium 99m Myoview 32.1 mCi stress and 10.11 mCi at rest. Resting and stress imaging in supine and prone positions demonstrate a medium sized, moderate, predominantly fixed perfusion defect in the basal to mid inferior LV byers. There is a small region of reversibility towards the mid inferior segment. Gated imaging demonstrates normal global LV systolic function. LVEF is calculated at 55%. Conclusion: Medium sized, moderate, predominantly fixed perfusion defect in the basal to mid inferior LV byers. There is a small region of reversibility towards the mid inferior segment. Findings are suggestive of partial reversible ischemia. Gated imaging demonstrates normal global LV systolic function. LVEF is calculated at 55%. Electronically signed by : Lindsay Ho MD 09/08/2025 12:58:55
[2025-09-07 08:15] VITALS: BP 142/77; PULSE 69; RESP 14
[2025-09-07] MEDS: ISOTOPE MYOVIEW (PER STUDY) 1 DOSE IV (08:38)
[2025-09-07] MEDS: SODIUM CHLORIDE 0.9% 10ML SYR (RAD ONLY) 10 ML IV ×2 (08:38)
--- NOTE | 2025-09-07 09:30 | CA_ITS ---
APPROVED REPORT EXAM: Comprehensive 2D, Doppler, and color-flow Echocardiogram Dishwasher Busser: Gladis Guardado CRT Ht: 6 ft 2 in Wt: 279lbs BSA: 2.50 BP: 141/96 mmHg Indications: Abnormal ECG, Chest Pain, Shortness of Breath, smoker 2D Dimensions LA Volume 36.90 mL LA Volume Index 14.40 mL/m2 (M/F) 16-34 M-Mode Dimensions RVDd 2.66 cm (0.9-2.6) LA Diam 3.67 cm (1.9-4.0) LVDd 5.39 cm (3.5-5.7) LVDs 3.22 cm (3.5-5.7) IVSd 1.69 cm (0.6-1.1) PWd 1.25 cm (0.6-1.1) EF (Teich) 70.40% FS 40.30% EDV (Teich) 140.70 mL TAPSE 2.17 (<1.7) ESV (Teich) 41.60 mL LV Diastology E Decel Time 210 (160-240 msec) E/A Ratio 0.91 MED A' 14.70 cm/s LAT A' 11.30 cm/s Aortic Valve AO Peak GR. 9.70 mmHg Mitral Valve MV A Velocity 82.0 (40-130 cm/s) E/A Ratio 0.91 Pulmonary Valve PV Peak Velocity 177.0 (50-150 cm/s) Tricuspid Valve TR P. Velocity 156.00 cm/s RAP Estimate 10.00 mmHg RVSP 19.80 mmHg Left Ventricle The left ventricle is normal size. Left ventricular systolic function is normal. The left ventricular ejection fraction is within the normal range. There is increased left ventricular wall thickness. There is normal LV segmental wall motion. The left ventricular diastolic function is normal. LVEF is 55% Right Ventricle The right ventricle is normal size. The right ventricular systolic function is normal. Atria The left atrium size is normal. The right atrium size is normal. There is no color Doppler evidence of interatrial shunt. Aortic Valve The aortic valve opens well. There is no hemodynamically significant aortic valvular stenosis. No aortic regurgitation is present. Mitral Valve The mitral valve is normal in structure. No evidence of mitral valve stenosis. Trace mitral regurgitation is present. Tricuspid Valve The tricuspid valve leaflets are thin and pliable. Trace tricuspid regurgitation. There is insufficient TR jet to estimate RVSP. Pulmonic Valve The pulmonary valve is grossly normal in structure. Trace pulmonic valve regurgitation is present. Great Vessels The aortic root is normal in size. The ascending aorta is mildly dilated, measuring 3.9 cm in diameter. IVC is normal in size and collapses >50% with inspiration. Pericardium There is no pericardial effusion. Other Information Study Quality: Fair Conclusion Normal biventricular systolic function. No significant valvular stenosis or regurgitation. The ascending aorta is mildly dilated, measuring 3.9 cm in diameter. Correlation with new or recent CTA chest is suggested. Electronically signed by : Lindsay Ho MD 09/13/2025 12:54:38
== END 2025-09-07 23:59 | disposition home or self-care (01) ==
LOC: RAD 07:13
PROVIDERS: PCP Family Medicine; Visit Provider Family Medicine
DX: Z01.810 Encounter for preprocedural cardiovascular examination (principal); I77.810 Thoracic aortic ectasia; I20.9 Angina pectoris, unspecified; R94.31 Abnormal electrocardiogram [ECG] [EKG]; R94.39 Abnormal result of other cardiovascular function study; R60.0 Localized edema; R06.00 Dyspnea, unspecified; Z82.49 Family history of ischemic heart disease and other diseases of the circulatory system
CPT/HCPCS: 78452; 93017; 93018; 93306; A9502; J2785

== ENCOUNTER 2025-10-04 07:42 | Outpatient (CLI) | payer OTHER, SELFPAY ==
[2025-10-04 07:53] VITALS: BMI 35.2
[2025-10-04 08:07] VITALS: BP 123/83; PULSE 81; RESP 18; TEMP 36.6; O2SAT 94
[2025-10-04] MEDS: IVABRADINE HCL 7.5MG TABLET PO (08:15)
[2025-10-04] MEDS: METOPROLOL TARTRATE 50MG TABLET PO (08:16)
[2025-10-04 08:22] LABS: Anion Gap 10.1 mEq/L (5-15); Blood Urea Nitrogen 15 mg/dl (9-20); Calcium 9.3 mg/dl (8.4-10.2); Carbon Dioxide 26 mmol/L (22.0-30.0); Chloride 104 mmol/L (98-107); Creatinine Clearance Estimated 149 mL/min (50-200); Creatinine,Serum 1.10 mg/dl (0.66-1.25); Estimated Glomerular Filt Rate 71 ml/min (>60); GFR (African American) 86 ML/MIN (>60); Glucose 96 mg/dl (74-100); Potassium 4.1 mmoL/L (3.5-5.1); Sodium 136 mmol/L (136-145)
--- NOTE | 2025-10-04 08:30 | CT_ITS ---
APPROVED REPORT Spring Former Machine: CLINICAL INDICATION Chest Pain TECHNIQUE Image Acquisition: A 128 slice MDCT scanner ([employer] View) was used for data acquisition. A noncontrast coronary calcium scan was performed. A CT attenuation threshold of 130 Hounsfield units (HU) was used for the detection of calcium in contiguous voxels of 1 sq mm in area to be counted as individual lesions. Bolus tracking in the ascending aorta with a threshold of 180 HU was performed. Immediately afterwards, ECG synchronized cardiac CT was then performed from the cardiac base to apex using retrospective gating with ECG tube current modulation. A total of 85 mL of Isovue 370 mg/mL contrast medium was administered at 5 mL/sec followed by a saline flush using a biphasic injection protocol. A tube voltage of 120 KVp was used. The patient received the following medications prior to the cardiac CT. 75 mg of oral metoprolol 15 mg of oral ivabradine 0.4 mg of sublingual nitroglycerin The average heart rate at the time of acquisition was 73 bpm and regular. Image Reconstruction Transaxial images were reconstructed at 0.67 mm slide thickness. Data was reviewed interactively on an advanced workstation capable of 2 and 3-dimensional displays in all conventional reconstruction formats, including multiplanar reformations, maximum intensity projections, curved multiplanar reformations, and volume rendered reconstructions. When applicable, selected routine images describing the relevant coronary anatomy and pathology were saved and sent to PACS. Complications None Technical Quality Overall image quality was fair. Coronary artery opacification was adequate. Total DLP (Dose-Length Product) is 3058 mGy-cm. The reported value represents the total of one or more individual components during the CT acquisition of this date and at this time, and as such, the same value may appear in more than one CT report depending on the interpreting/reporting physicians. COMPARISON None FINDINGS CT Coronary Calcium Scoring LMA (Left Main Artery) = 0 LAD (Left Anterior Descending) = 21 LCX (Left Coronary Circumflex) = 0 RCA (Right Coronary Artery) = 0 Total Calcium Score = 21 using the AJ-130 method. The observed calcium score of 21 is at 79th percentile for subjects of the same age, sex, and race/ethnicity. The interpretation of the calcium heart score is based on the following continuum*: 0 = no calcified plaque detected (risk of coronary artery disease is very low ??? less than 5%) 1-10 = calcium detected in extremely minimal levels (risk of coronary diseases is still low ??? less than 10%) 11-100 = mild levels of plaque detected with certainty (mild or minimal narrowing of heart arteries is likely) 101-400 = definite,at least moderate levels of plaque detected (relatively high risk of a heart attack within 3-5 years) >401-999 = extensive levels of plaque detected (high risk of heart attack, high levels of vascular disease are present, high likelihood of at least one significant coronary narrowing) *The calcium heart score quantifies the burden of coronary calcification/plaque in the coronary arteries. The calcium heart score is not able to evaluate the presence or burden of non-calcified (i.e. soft) plaque. There is no identifiable calcification in the aortic valve, mitral annulus or mitral valve, pericardium, or myocardium. Coronary CT Angiography The coronary arterial system is right dominant. Quantitative Stenosis Grading: Left Main (LM): The left main originates normally from the left sinus of Valsalva. The LM bifurcates into the left anterior descending artery and left circumflex artery. The LM is patent with no evidence of atherosclerosis. Left Anterior Descending (LAD) and Diagonal Branches: The LAD gives off 3 diagonal branch(es). There is a focus of calcified plaque in the proximal LAD, with no evidence of luminal stenosis. There is no evidence of LAD-myocardial bridge. Left Circumflex (LCX) and Obtuse Marginals (OM): The LCX gives off 1 Obtuse Marginal (OM) branch(es). The LCX and its branches are patent with no evidence of atherosclerosis. Right Coronary Artery (RCA): The RCA originates normally from the right sinus of Valsalva. The RCA gives off a posterior descending artery (PDA) and posterolateral (PL) branches. The RCA and its branches are patent with no evidence of atherosclerosis. Non-Coronary Cardiac Findings: Analysis of the left ventricular (LV) structure and function was performed after 3-D reconstruction of the LV from axial images, with user-corrected automatic contouring for assessment of LV volumes and user-defined reconstruction from oblique planes for measurement of 3-D cardiac structure and function. -The left ventricle systolic function is normal. -There is no left atrial appendage filling defect. Two right pulmonary veins and two left pulmonary veins drain normally into the left atrium. -No pericardial thickening or calcification. -Central and branch pulmonary arteries in the [id number] are unremarkable. -Thoracic aorta within the visualized thoracic aortic-branches in the [id number] is unremarkable. Extracardiac Structures No significant extra-cardiac findings. Note, however, that this study is focused on the cardiac findings. IMPRESSION - Presence of coronary calcification with an Agatston score = 21 using the AJ-130 method. -The observed calcium score of 21 is at 79th percentile for subjects of the same age, sex, and race/ethnicity. -No evidence of significant flow-limiting atherosclerosis of the coronary arteries. -CAD-RADS 1. Management recommendations per ACC/AHA guidelines*, as clinically appropriate. *Recommendations: CAD RADS 0: Reassurance. Consider non-atherosclerotic causes of chest pain. CAD RADS 1: Consider non-atherosclerotic causes of chest pain. Consider preventive therapy and risk factor modification. CAD RADS 2: Consider non-atherosclerotic causes of chest pain. Consider preventive therapy and risk factor modification, particularly for patients with nonobstructive plaque in multiple segments. CAD RADS 3: Consider further functional testing. Consider symptom-guided anti-ischemic and preventive pharmacotherapy as well as risk factor modification per published guideline statements. CAD RADS 4A: Consider further functional testing or invasive coronary angiography with revascularization per published guideline statements. Consider symptom-guided anti-ischemic and preventive pharmacotherapy as well as risk factor modification per published guideline statements. CAD RADS 4B: Invasive coronary angiography recommended with revascularization per published guideline statements. Consider symptom-guided anti-ischemic and preventive pharmacotherapy as well as risk factor modification per published guideline statements. CAD RADS 5: Consider invasive angiography and/or viability assessment with revascularization per published guideline statements. Consider symptom-guided anti-ischemic and preventive pharmacotherapy as well as risk factor modification per published guideline statements. CRITICAL RESULT None COMMUNICATION Per this written report The coronary and cardiac findings of this CCTA were reviewed, reported, and signed by Caio Ho MD (Dampener Operator) Conclusion Electronically signed by : Lindsay Ho MD 10/06/2025 13:13:07
[2025-10-04 09:15] VITALS: BP 140/93; PULSE 68; RESP 18; TEMP 36.6; O2SAT 96
[2025-10-04 09:20] VITALS: BP 109/63; PULSE 67; RESP 18; TEMP 36.6; O2SAT 98
[2025-10-04 09:25] VITALS: BP 98/67; PULSE 75; RESP 18; TEMP 36.6; O2SAT 96
== END 2025-10-04 09:30 | disposition home or self-care (01) ==
PROVIDERS: PCP Family Medicine; Visit Provider Physician Assistant
DX: I25.10 Atherosclerotic heart disease of native coronary artery without angina pectoris (principal); I47.29 Other ventricular tachycardia; R94.31 Abnormal electrocardiogram [ECG] [EKG]; R94.39 Abnormal result of other cardiovascular function study; Z82.49 Family history of ischemic heart disease and other diseases of the circulatory system
CPT/HCPCS: 75574; 80048